=== PATIENT | female | born 1965 | race African-American/Black ===

== ENCOUNTER 2017-08-01 10:33 | Observation (INO) | payer MEDICARE, MEDICAID ==
[2017-08-01 11:35] LABS: #Basophils 0.1 thou/uL (0.0-0.2); #Eosinphils 0.7 thou/uL (0.0-0.7); #Lymphocytes 0.9 thou/uL (1.20-3.40); #Monocytes 0.6 thou/uL (0.11-0.59); #Neutrophils 3.5 thou/uL (1.40-6.50); %Basophils 1.1 % (0.0-1.0); %Eosinophils 12.8 % (0.0-10.0); %Lymphocytes 15.4 % (21.0-51.0); Hematocrit 39.3 % (36.0-47.0); Macrocytosis MODERATE=16-30 cells (100X) (0-5/hpf); Mean Platelet Volume 10.7 fL (7.4-10.4); Red Blood Cell (RBC) Count 3.46 mill/uL (4.20-5.40); White Blood Cell (WBC) Count 5.7 thou/uL (4.8-10.8)
[2017-08-01 11:43] LABS: ALT (SGPT) 26 U/L (8-55); AST (SGOT) 22 U/L (5-34); Alkaline Phosphatase 338 U/L (40-150); Anion Gap 17 mmol/L (10-20); BUN (Urea Nitrogen) 32 mg/dL (7.0-18.7); Bilirubin, Total 0.2 mg/dL (0.2-1.2); CK (CPK) 40 U/L (29-168); Calc. Creatinine Clearance 0 mL/min (70-130); Calcium 8.8 mg/dL (7.8-10.44); Carbon Dioxide 22 mmol/L (22-29); Chloride 103 mmol/L (98-107); Estimated GFR-MDRD 11; Globulin 4.4 g/dL (2.4-3.5); Protein, Total 7.4 g/dL (6.0-8.3)
[2017-08-01 11:44] LABS: Troponin I 0.033 ng/mL (< 0.028)
--- NOTE | 2017-08-01 11:50 | RAD ---
SINGLE VIEW OF THE CHEST: COMPARISON: 06/09/17. HISTORY: Left-sided chest pain. FINDINGS: Single view of the chest shows a normal sized cardiomediastinal silhouette. There is no evidence of consolidation, mass, or pleural effusion. The bones are unremarkable. IMPRESSION: No evidence of acute cardiopulmonary disease. POS: [facility]
[2017-08-01] MEDS ORDERED: Acetaminophen 500 MG TAB ONE (13:16)
[2017-08-01 14:31] LABS: Troponin I 0.036 ng/mL (< 0.028)
[2017-08-01] MEDS ORDERED: Ondansetron ODT 4 MG TAB SL PRN (17:21)
[2017-08-01] MEDS ORDERED: Ondansetron HCl/PF 4 MG/2 ML Vial IVP PRN (17:21)
[2017-08-01] MEDS ORDERED: Acetaminophen 325 MG TAB PO PRN (17:21)
--- NOTE | 2017-08-01 21:35 | CON ---
DATE OF CONSULTATION: 08/01/2017 CONSULTING PHYSICIAN: Anjana Solis M.D. REQUESTING PHYSICIAN: ER physician. REASON FOR CONSULTATION: The need for maintenance hemodialysis. IMPRESSION: 1. End-stage renal disease, hemodialysis dependent, due for dialysis today. 2. Chest pain, query cause, likely in the context of inoperable coronary artery disease, small vess el coronary artery disease. 3. Immunosuppressed due to retroviral infection. PLAN: 1. Hemodialysis with ultrafiltration as tolerated by hemodynamics. 2. Chest pain workup by the primary team. 3. From the renal standpoint, the patient should be good for discharge tomorrow, status post hemodi alysis today. HISTORY OF PRESENT ILLNESS: History is that of a 51-year-old female patient with end-stage renal di sease, hemodialysis-dependent on a Friday, Friday, Friday schedule, who presented here instead of going to dialysis because of chest pain. The patient is being worked up for acute coronary syndrom e. Of note, patient according to previous records does have small vessel inoperable coronary artery disease. The patient is currently on symptomatic treatment with nitrates. As a result of this fin ding, the patient could not get dialysis today, heading through the weekend decision has been taken to admit this patient to complete the chest pain workup and have patient undergo hemodialysis with u ltrafiltration. PAST MEDICAL HISTORY: As listed above. MEDICATIONS: Reviewed as documented on [facility]. ALLERGIES: CODEINE, PENICILLIN, MORPHINE and SULFA. FAMILY HISTORY: Not significantly related to the presenting illness. SOCIAL HISTORY: The patient is a group home resident. No alcohol, no tobacco, no illicit drug us e. REVIEW OF SYSTEMS: As documented in the body of the history, otherwise the other systems were revie wed and were found not to be significantly related to the presenting illness. PHYSICAL EXAMINATION: GENERAL: The patient was found not to be in any obvious distress, undergoing hemodialysis, hemodyna mically stable. VITAL SIGNS: Blood pressure 112/60, respiratory rate of 18, O2 sat of 96%. HEENT: Unremarkable with moist oral mucosa. Neck is supple. No conjunctival injection or icterus. CARDIOVASCULAR: First and second heart sounds were heard. RESPIRATORY: Clear to auscultation. DIGESTIVE: Revealed a benign abdomen with positive bowel sounds. EXTREMITIES: No peripheral edema. SKIN: No new gross rash. LYMPHATICS: No peripheral lymphadenopathy. SUMMARY: A 51-year-old female patient with end-stage renal disease, hemodialysis dependent, who pre sented here with chest pain. Thank you for this consultation. We will follow with you.
[2017-08-01 22:20] VITALS: BMI 27.2
[2017-08-02] MEDS ORDERED: Acetaminophen 325 MG TAB PER TUBE PRN (00:32)
[2017-08-02] MEDS: Guaifenesin DM 100-10/5 ML UDCUP PER TUBE PRN ×2 (00:42→08:51)
[2017-08-02] MEDS ORDERED: Acetaminophen 325 MG/10.15 ML UDCUP PER TUBE PRN (15:53)
[2017-08-02] MEDS ORDERED: Ondansetron ODT 4 MG TAB PER TUBE PRN (16:05)
[2017-08-02] MEDS ORDERED: traMADol HCl 50 MG TAB PO PRN (16:07)
[2017-08-02 17:38] LABS: Troponin I 0.043 ng/mL (< 0.028)
[2017-08-02] MEDS: Sevelamer Carbonate 800 MG TAB PO SCH (17:38)
--- NOTE | 2017-08-02 20:14 | PRG ---
DATE OF SERVICE: 08/02/2017 SUBJECTIVE: The patient was seen and examined with no new complaint noted. PHYSICAL EXAMINATION: VITAL SIGNS: Afebrile with temperature 98.7, pulse 86, respiratory rate 18, O2 sat 99%, blood press ure 102/58. HEENT: Unremarkable with moist oral mucosa. No conjunctival injection or icterus. NECK: Supple. CARDIOVASCULAR: First and second heart sounds were heard. RESPIRATORY: Clear to auscultation. DIGESTIVE: Revealed a benign abdomen with positive bowel sounds. EXTREMITIES: No peripheral edema. SKIN: No new gross rash. LYMPHATICS: No peripheral lymphadenopathy. IMPRESSION: 1. End-stage renal disease, hemodialysis dependent. 2. Immunosuppressed in the context of retroviral infection. 3. Chest pain. PLAN: 1. The patient to be on the current schedule of hemodialysis. 2. From the renal standpoint, the patient is good for discharge.
[2017-08-02] MEDS ORDERED: ABACAVIR SULFATE PER TUBE SCH (21:00)
[2017-08-02] MEDS ORDERED: Atorvastatin Calcium 40 MG TAB PER TUBE SCH (21:00)
[2017-08-02] MEDS ORDERED: RisperDAL Oral Solution 1 MG/ML UDCUP PER TUBE SCH (21:00)
[2017-08-03 07:28] VITALS: BP 112/51; TEMP 98
--- NOTE | 2017-08-03 07:43 | HP ---
DATE OF ADMISSION: 08/01/2017 CHIEF COMPLAINT: Chest pain. HISTORY OF PRESENT ILLNESS: Ms. Veronica is a 51-year-old female with past medical history of end-stage renal disease on hemodialysis and diffuse coronary artery disease, developed chest pain in the left side. The patient was on the way to dialysis today by EMS when she started chest pain and she was brought to the emergency room. Chest pain described as sharp pain in the retrosternal area , no diaphoresis, no shortness of breath, no dizziness. The chest pain is reproducible. In the ER, the patient was evaluated and found to have chest pain , 08/19. Patient received Tylenol and aspirin, admitted to rule out ME in view of her cardiac history. PAST MEDICAL HISTORY: 1. End-stage renal disease, on hemodialysis. 2. Coronary artery disease, diffuse inoperable. 3. Diabetes mellitus type 2. 4. Hypertension. 5. Status post cerebrovascular accident. 6. Peripheral vascular disease. 7. Gastroesophageal reflux disease. 8. Hyperlipidemia. 9. Failure to thrive. 10. infections. 10. Dysphagia, status post PEG. PAST SURGICAL HISTORY: 1. Status post hysterectomy. 2. Status post AKA left and BKA right. 3. PEG tube placement. CURRENT MEDICATIONS: The patient is on trazodone 300 mg daily, tramadol 50 q.i.d. p.r.n., lamivudine 150 daily, Renvela 2.4 grams t.id, Risperdal 3 mg daily, MiraLax daily, Ditropan XL 5 mg daily, Zofran p.r.n., nitroglycerin p.r.n., isosorbide mononitrate 30 mg daily, folic acid 0.8 mg daily, ferrous sulfate 325 mg daily, Sustiva 600 mg daily, Coreg 3.125 mg daily, Lipitor 40 mg daily, aspirin 81 mg daily, Abacavir 600 mg b.i.d. ALLERGIES: PENICILLIN, MORPHINE, SULFONAMIDES, CODEINE. FAMILY HISTORY: Nothing contributory. SOCIAL HISTORY: [facility]. No history of smoking. No history of alcohol. REVIEW OF SYSTEMS: Cardiovascular: No chest pain. No shortness of breath. Respiratory: No fever or cough. Gastrointestinal: No nausea or vomiting. No abdominal pain. Genitourinary: No distension. Central nervous system: Headache, no dizziness. PHYSICAL EXAMINATION: GENERAL: The patient is alert, awake, oriented x3. VITAL SIGNS: Temperature 98, pulse 67, respirations 20, blood pressure 110/60. HEENT: Head is normocephalic, atraumatic. Pupils are equal and reactive. Nasopharynx is pale and dry. Hard and soft palate, no lesions seen. SKIN: Skin turgor decreased. NECK: Supple. No JVD. LUNGS: Bilateral air entry present, no rales, no rhonchi. CARDIAC: S1, S2 regular. ABDOMEN: Soft. No distention, no tenderness. Normal bowel sounds present. Chest wall is tender. NEUROLOGIC: No new deficits. LABORATORY AND X-RAY FINDINGS: CBC shows WBC 5.7, hemoglobin 12, hematocrit 39 , platelets 81. Metabolic panel, sodium 138, potassium 3.8, chloride 103, CO2 22, creatinine 4.9, and glucose 85. CK-MB 1, troponin I 0.023. Chest x-ray, no evidence of acute cardiopulmonary disease. EKG shows normal sinus rhythm, no acute ST-T wave changes seen. ASSESSMENT: 1. Atypical chest pain, rule out myocardial infarction. 2. Diffuse coronary artery disease, inoperable, medical management only. 3. End-stage renal disease, on hemodialysis. 4. Diabetes mellitus. 5. Hypertension. 6. Status post cerebrovascular accident. 7. Peripheral vascular disease. 8. History of infection. PLAN: 1. Vital signs q.4 hours. 2. Activity: As tolerated. 3. Allergies: Multiple, which include PENICILLIN, MORPHINE, SULFONAMIDES, and CODEINE. 4. Diet: Cardiac, renal and ADA. 5. Troponin I q.8 hours x2. 6. Continue prison medication. 7. Hemodialysis daily. The patient will be discharged home soon if everything is negative. MTDD
[2017-08-03] MEDS ORDERED: Ferrous Sulfate 325 MG TAB PO SCH (08:00)
[2017-08-03] MEDS ORDERED: ASCORBIC ACID PER TUBE SCH (09:00)
[2017-08-03] MEDS ORDERED: Folic Acid 1 MG TAB PER TUBE SCH (09:00)
[2017-08-03] MEDS ORDERED: Polyethylene Glycol 3350 17 GM Packet PO SCH (09:00)
[2017-08-03] MEDS ORDERED: traZODone HCl 150 MG TAB PER TUBE SCH (09:00)
[2017-08-03] MEDS ORDERED: Aspirin 81 mg Enteric Coated Tablet PO SCH (09:00)
[2017-08-03] MEDS ORDERED: Carvedilol 3.125 MG TAB PER TUBE SCH (09:00)
[2017-08-03] MEDS ORDERED: Lactinex Tablet PER TUBE SCH (09:00)
[2017-08-03] MEDS: Sevelamer Carbonate 800 MG TAB PO SCH (09:00)
--- NOTE | 2017-08-06 08:47 | DIS ---
DATE OF ADMISSION: 08/01/2017 DATE OF DISCHARGE: 08/03/2017 ADMITTING DIAGNOSES: 1. Chest pain, atypical, rule out myocardial infarction. 2. Diffuse coronary artery disease, inoperable. 3. End-stage renal disease on hemodialysis. 4. Diabetes mellitus. 5. Hypertension. 6. Status post cerebrovascular accident. 7. Peripheral vascular disease. FINAL DIAGNOSES: 1. Chest pain, atypical, no evidence of acute myocardial infarction. 2. Diffuse coronary artery disease, inoperable. 3. End-stage renal disease, on hemodialysis. 4. Diabetes mellitus. 5. Hypertension. 6. History of cerebrovascular accident. 7. Peripheral vascular disease. BRIEF SUMMARY OF HOSPITAL COURSE: Ms. Veronica is a 51-year-old female, who was admitted because of chest pain. The patient has history of coronary artery disease, inoperable, chest pain is sharp in nature, atypical. Her coronary artery disease was diffuse inoperable medical management. The patient was admitted to rule out myocardial infarction. Serial cardiac enzymes were done. Second troponin I was 0.036 and third one was 0.043 which could be due to her end-stage renal disease. The patient did not have any more chest pain. No shortness of breath. In view of improvement, the patient was discharged back to alf. PHYSICAL EXAMINATION: At the time of discharge, GENERAL: She was stable. VITAL SIGNS: Her vital signs were stable. LUNGS: Clear. HEART: Sounds regular. ABDOMEN: Soft and nontender. Bowel sounds present. DISCHARGE MEDICATIONS: Include Sustiva 600 mg daily, Zofran p.r.n., Ditropan XL 5 mg daily, Tylenol p.r.n., vitamin C daily, lamivudine 150 mg daily, Acidophilus Lactobacillus 1 capsule daily, Lipitor 40 mg daily, folic acid 1 daily, ferrous sulfate 1 tablet daily, Risperdal 3 mg daily, abacavir 600 mg b.i.d., tramadol p.r.n., trazodone 300 mg daily, Coreg 3.125 mg daily, sertraline 50 mg daily, Renvela 2.4 grams t.i.d., MiraLax daily, Imdur 30 mg daily, aspirin daily. FOLLOWUP: The patient will be followed up at alf. [facility]US[facility]and[facility]
== END 2017-08-03 11:07 ==
LOC: ERS 10:33 → 2NO 15:14
PROVIDERS: ADMIT Internal Medicine; ATTEND Internal Medicine
DX: R07.89 Other chest pain (principal); I25.10 Atherosclerotic heart disease of native coronary artery without angina pectoris; E11.22 Type 2 diabetes mellitus with diabetic chronic kidney disease; I12.0 Hypertensive chronic kidney disease with stage 5 chronic kidney disease or end stage renal disease; N18.6 End stage renal disease; E11.51 Type 2 diabetes mellitus with diabetic peripheral angiopathy without gangrene; D89.9 Disorder involving the immune mechanism, unspecified; K21.9 Gastro-esophageal reflux disease without esophagitis; B33.3 Retrovirus infections, not elsewhere classified; R62.7 Adult failure to thrive; Z79.82 Long term (current) use of aspirin; Z79.899 Other long term (current) drug therapy; Z99.2 Dependence on renal dialysis; Z88.0 Allergy status to penicillin; Z88.5 Allergy status to narcotic agent; Z88.2 Allergy status to sulfonamides; Z89.512 Acquired absence of left leg below knee; Z89.511 Acquired absence of right leg below knee; Z86.73 Personal history of transient ischemic attack (TIA), and cerebral infarction without residual deficits
CPT/HCPCS: 71010; 80053; 82550; 82553; 82962 ×3; 84484 ×3; 85025; 87340; 93005; 94760; 99285; G0378; 36415; 36416; 90935; G0257; Q0162

== ENCOUNTER 2017-08-15 09:38 | Emergency (ER) | payer MEDICARE, MEDICAID ==
--- NOTE | 2017-08-15 11:17 | CT ---
CT HEAD NONCONTRAST: HISTORY: Left lower extremity numbness. Altered mental status. COMPARISON: 07/07/2015 FINDINGS: There is no evidence of acute intracranial hemorrhage or infarct. Diffuse cortical atrophy and loss prevention representative kian ischemic small vessel disease are similar in appearance to the previous exam. Old left cerebell ar infarct is stable. There is no mass effect or shift of midline structures. The visualized paran pam sinuses remain well aerated. IMPRESSION: Chronic type findings are stable. No acute intracranial abnormalities are demonstrated on noncontra st CT head. POS: [facility]
== END 2017-08-15 12:44 | disposition home or self-care (01) ==
LOC: ERS 09:38
DX: I13.2 Hypertensive heart and chronic kidney disease with heart failure and with stage 5 chronic kidney disease, or end stage renal disease (principal); I50.9 Heart failure, unspecified; N18.6 End stage renal disease; E11.9 Type 2 diabetes mellitus without complications; I25.10 Atherosclerotic heart disease of native coronary artery without angina pectoris; I25.2 Old myocardial infarction; K21.9 Gastro-esophageal reflux disease without esophagitis; B20 Human immunodeficiency virus [HIV] disease; E78.5 Hyperlipidemia, unspecified; J44.9 Chronic obstructive pulmonary disease, unspecified; F32.9 Major depressive disorder, single episode, unspecified; F03.90 Unspecified dementia, unspecified severity, without behavioral disturbance, psychotic disturbance, mood disturbance, and anxiety; Z87.891 Personal history of nicotine dependence; Z86.73 Personal history of transient ischemic attack (TIA), and cerebral infarction without residual deficits; Z79.84 Long term (current) use of oral hypoglycemic drugs; Z99.2 Dependence on renal dialysis
CPT/HCPCS: 70450; 93005

== ENCOUNTER 2017-08-27 03:05 | Inpatient (IN) | payer MEDICARE, MEDICAID ==
[2017-08-27 03:58] LABS: #Basophils 0.1 thou/uL (0.0-0.2); #Eosinphils 0.7 thou/uL (0.0-0.7); #Lymphocytes 1.6 thou/uL (1.20-3.40); #Monocytes 1.2 thou/uL (0.11-0.59); #Neutrophils 8.5 thou/uL (1.40-6.50); %Basophils 0.8 % (0.0-1.0); %Eosinophils 6.1 % (0.0-10.0); %Lymphocytes 13.2 % (21.0-51.0); %Monocytes 9.6 % (0.0-10.0); Hematocrit 33.4 % (36.0-47.0); Red Blood Cell (RBC) Count 3.01 mill/uL (4.20-5.40); White Blood Cell (WBC) Count 12.1 thou/uL (4.8-10.8)
[2017-08-27 04:20] LABS: ALT (SGPT) 36 U/L (8-55); AST (SGOT) 24 U/L (5-34); Alkaline Phosphatase 223 U/L (40-150); Anion Gap 14 mmol/L (10-20); BUN (Urea Nitrogen) 46 mg/dL (7.0-18.7); Bilirubin, Total 0.4 mg/dL (0.2-1.2); CK (CPK) 31 U/L (29-168); Calc. Creatinine Clearance 0 mL/min (70-130); Calcium 8.7 mg/dL (7.8-10.44); Carbon Dioxide 24 mmol/L (22-29); Chloride 100 mmol/L (98-107); Estimated GFR-MDRD 10; Globulin 4.5 g/dL (2.4-3.5); Lipase 103 U/L (8-78); Protein, Total 7.3 g/dL (6.0-8.3)
[2017-08-27 04:30] LABS: Troponin I 0.247 ng/mL (< 0.028)
[2017-08-27] MEDS ORDERED: Enoxaparin Sodium 80 MG/0.8 ML SYRINGE ONE (05:29)
[2017-08-27] MEDS ORDERED: Ondansetron ODT 4 MG TAB SL PRN (06:25)
[2017-08-27] MEDS ORDERED: Acetaminophen 325 MG TAB PO PRN ×2 (06:25→15:42)
[2017-08-27] MEDS ORDERED: Ondansetron HCl/PF 4 MG/2 ML Vial IVP PRN (06:25)
[2017-08-27 07:12] LABS: Troponin I 0.232 ng/mL (< 0.028)
--- NOTE | 2017-08-27 08:40 | RAD ---
PORTABLE AP CHEST: Date: 08-27-17 History: Chest pain. Comparison: 08-01-17 FINDINGS: Cardiac silhouette remains magnified by projection but is at the upper limits of normal in size to m oderately enlarged. The pulmonary vasculature is within normal limits. Linear densities seen at the right lung base also seen on the prior exam which may be related to mild linear scarring. There is s light blunting of the left lateral costophrenic angle which may be related to tiny left pleural effu garrett or pleural thickening. This is also noted on the prior exam. Vascular stent is partially visual ized overlying the right axillary region. IMPRESSION: 1. Overall stable chest with questionable tiny left pleural effusion. POS: [facility]
[2017-08-27 10:44] LABS: Troponin I 0.224 ng/mL (< 0.028)
[2017-08-27] MEDS ORDERED: Vancomycin HCl 1 GM in Premix Bag 1 BAG IVPB SCH (11:15)
[2017-08-27] MEDS ORDERED: Docusate 100 MG CAP PER TUBE PRN (15:45)
[2017-08-27] MEDS ORDERED: Nitroglycerin 0.4 MG TAB (25 Tab Bottle) SL PRN (15:49)
[2017-08-27] MEDS ORDERED: Nitroglycerin 2% Ointment 1 INCH/1 GM Packet TOP PRN (15:49)
[2017-08-27] MEDS ORDERED: Ondansetron ODT 4 MG TAB PER TUBE PRN (15:50)
[2017-08-27] MEDS: traMADol HCl 50 MG TAB PO PRN (17:00)
[2017-08-27] MEDS ORDERED: Dextrose 5% in Water 1,000 ML IV PRN (18:54)
[2017-08-27] MEDS ORDERED: Dextrose 50% Abboject 50 ML SYRINGE IVP PRN (18:54)
[2017-08-27] MEDS ORDERED: Insulin Regular 300 UNITS/3 ML VIAL SC PRN (18:54)
[2017-08-27] MEDS ORDERED: FLU VACC QS2017-18 36 mo. & older 0.5 ML SYRINGE IM ONE (21:00)
[2017-08-27] MEDS: Pregabalin 75 MG CAP PER TUBE SCH (21:49)
[2017-08-27] MEDS: Zolpidem Tartrate 5 MG TAB PER TUBE SCH (21:49)
[2017-08-27] MEDS: Isosorbide Mononitrate 20 MG TAB PO SCH (21:50)
[2017-08-27] MEDS: Clindamycin 150 MG CAP PER TUBE SCH (21:50)
[2017-08-27] MEDS: Atorvastatin Calcium 40 MG TAB PER TUBE SCH (21:50)
[2017-08-27] MEDS: Lactinex Tablet PER TUBE SCH (21:50)
[2017-08-27] MEDS: Oxybutynin ER 5 MG TAB PO SCH (22:03)
[2017-08-27] MEDS: ABACAVIR SULFATE PER TUBE SCH (22:11)
--- NOTE | 2017-08-28 00:21 | CON ---
DATE OF CONSULTATION: 08/27/2017 DATE OF ADMISSION: 08/27/2017 INDICATION FOR CONSULTATION: A 51-year-old female with chest pain. HISTORY OF PRESENT ILLNESS: This unfortunate 51-year-old female who has been seen on multiple occas ions for chest discomfort, has a history of known coronary artery disease which is a severe 3-vessel disease which is inoperable, which is also not amenable to undergoing any type of angioplasty. She has a history of cardiomyopathy. She actually had improvement in her left ventricular systolic fun ction over time. She has end-stage renal disease and on hemodialysis. She has had multiple admissi ons for chest discomfort and medical management is the only option for her unfortunately. We will c marco antonio to adjust the medications. She is on multiple medications at home also, which include nitra leonie as well as beta-blockers. At this time, she continues to have some chest discomfort which she s ays has been ongoing for several days. Her EKG does not show any acute ST-segment changes. Cardiac enzymes are slightly elevated but would still be considered only minimal with someone who has end-s tage renal disease. Her troponin I was 0.247. It is now decreased down to 0.224. PAST MEDICAL HISTORY: Significant for the 3-vessel inoperable disease. She also has a history of H IV. She has a history of hypertension. She has had CVAs in the past. She has had an AKA on the le ft and a BKA on the right. She had a systolic heart failure which is known. She had an ejection fr action in the past, which was 10%-15%, which has had improvement. She has had a PEG tube placed, bu t she has actually been able to eat recently without having aspiration apparently. She also has a h istory of diabetes and hypertension. She has had a history of pneumonias in the past. ALLERGIES: She is allergic to PENICILLIN and SULFA. MEDICATIONS: Her list of medications are rather extensive. At home, she is on nitroglycerin p.r.n. as well as MiraLax, iron, Zantac, Colace, Renvela. She takes lactulose, Lyrica, Prozac, Seroquel, Imdur, Tylenol, Ambien, Cleocin, Zofran, low-dose aspirin, Ditropan, Sustiva. She is on DuoNebs, Co reg, vitamins, Lasix, Lipitor, trazodone, and Epivir. SOCIAL HISTORY: She resides in a shelter. She has a history of tobacco abuse. She has a hist ory of tobacco abuse in the past and illicit drug use. REVIEW OF SYSTEMS: She denied any new complaints except for the chest discomfort, was told in the h istory of present illness. She denied any GI complaints such as nausea, vomiting, diarrhea. No complaints. No chest complaints. No pulmonary complaints such as asthma or emphysema. No recent c olds or cough. She does have an occasional cough but no pneumonias. Neurologically, no seizures. She did have a stroke, but she seems to have had some recovery. She is able to eat and she has had bilateral lower extremity amputations. LABORATORY DATA: Shows a creatinine of 5.52 with a BUN of 46, WBC was 12.1, potassium was 4.6, hemo globin was 11.2. PHYSICAL EXAMINATION: GENERAL: Reveals a middle-aged female. VITAL SIGNS: Blood pressure 125/57, heart rate is 77, respiratory rate 16. She is afebrile. HEENT: Shows the head to be normocephalic, atraumatic. Carotid pulses are present. CHEST: Clear to auscultation. I did not hear any rales, rhonchi, or wheezing. CARDIOVASCULAR: Reveals a regular rate and rhythm. No significant murmurs, heaves, thrills, bruits , or rubs. ABDOMEN: Unremarkable. Positive bowel sounds are present. No tenderness. EXTREMITIES: Showed evidence of a right BKA and left AKA. She has a dialysis shunt in both arms. NEUROLOGIC: She has evidence of previous stroke. She has had some difficulty in speech, but she is able to communicate. Severe three-vessel coronary artery disease which is inoperable and is not amenable to undergo angio plasty or stent placement. She has medical management only. We will continue to adjust her medicat ions as needed. She complains of chest pain, 10/10, but with no EKG changes. Her EKG does show griffin dence of possible old inferior myocardial infarction. She did have an echocardiogram in 10/2016, wh ich showed an ejection fraction of 40%-45% with aortic valve sclerosis and mild mitral and tricuspid valve regurgitation. MPRESSION: 1. Severe three-vessel coronary artery disease, again not amenable to undergoing angioplasty or fritz nt placement. We will continue to manage medications. 2. History of hypertension. This is under reasonable control at this time. 3. End-stage renal disease on hemodialysis. She will continue with dialysis. 4. History of cerebrovascular accident. This will be managed by the primary service. 5. Anemia. This is also stable at this time. I will be more than happy to continue to follow the patient with you; however, there is very little that we have to offer from a cardiac standpoint othe r than medical management. She appears to be almost on multiple medications at this time. Present care of the patient will be done by Dr. Contreras when he resumes care of the patient tomorrow.
--- NOTE | 2017-08-28 05:57 | CON ---
DATE OF CONSULTATION: 08/27/2017 CONSULTING PHYSICIAN: Anjana Solis M.D. REQUESTING PHYSICIAN: Dr. Crandall. REASON FOR CONSULTATION: Need for maintenance hemodialysis. IMPRESSION: 1. End-stage renal disease, hemodialysis dependent Friday, Friday, Friday, due for dialysis toda y. 2. Chest pain likely in the context of inoperable small vessel coronary artery disease. PLAN: We will dialyze this patient in accordance with her schedule. Further management to be depyassine dent on the clinical course. HISTORY: History is that of a 51-year-old female patient with end-stage renal disease, hemodialysis dependent on a Friday, Friday, Friday schedule, who presented here with chest pain. The patient does have a history of presenting to the hospital with recurrent chest pain and this is believed to be inoperable due to the small cardiac vessels. The patient presented this time again with the sally e complaint. PAST MEDICAL HISTORY: Significant for end-stage renal disease, hemodialysis dependent, hypertension with a viral infection. MEDICATIONS: Reviewed and as documented on [employer]. REVIEW OF SYSTEMS: As documented in the body of the history. The other systems were reviewed and w ere found not to be significantly related to the presenting illness. PHYSICAL EXAMINATION: GENERAL: The patient was found not to be in any obvious distress, on dialysis. VITAL SIGNS: Afebrile, hemodynamically stable. HEENT: Unremarkable with moist oral mucosa. NECK: Supple. No conjunctival injection or icterus. CARDIOVASCULAR SYSTEM: First and second heart sounds were heard. RESPIRATORY SYSTEM: Clear to auscultation. DIGESTIVE SYSTEM: Revealed a benign abdomen. EXTREMITIES: No peripheral edema. SKIN: No new gross rash. LYMPHATICS: No peripheral lymphadenopathy. SUMMARY: A 51-year-old female patient with end-stage renal disease, hemodialysis dependent, who pre sented here with intermittent chest pain. Thank you for this consult. I will follow with you.
--- NOTE | 2017-08-28 06:31 | HP ---
DATE OF ADMISSION: 08/27/2017 CHIEF COMPLAINT: Chest pain and abscess in the right axilla. HISTORY OF PRESENT ILLNESS: Ms. Veronica is a 51-year-old female with past medical history of end-stage renal disease, diabetes mellitus, diffuse coronary artery disease who was brought in because of the chest pain. The patient states she had pain in the retrosternal area which is pressure-like started in the morning, but it got resolved after the EMS came. The patient received nitro x2. She did not have any shortness of breath, no fever, complaints of swelling and pain in the right underarm for a few days and she states it is draining pus now. The patient was brought to the emergency room where she was evaluated and found to have elevated troponin I and possible abscess, which is draining in the right axilla. The patient received vancomycin 1 gram, aspirin and Lovenox. The patient is admitted for further evaluation and management. Currently, the patient does not have any chest pain. PAST MEDICAL HISTORY: 1. Diabetes mellitus. 2. Diffuse coronary artery disease, nonoperable. 3. Peripheral vascular disease, status post bilateral BKA. 4. History of cerebrovascular accident. 5. Hypertension. 6. End-stage renal disease, on hemodialysis. 7. History of HIV. PAST SURGICAL HISTORY: 1. Status post BKA bilaterally. 2. Status post PEG tube placement. 3. Status post hysterectomy. CURRENT MEDICATIONS: The patient is on multiple medications, which include abacavir 600 mg b.i.d., vitamin C daily, aspirin daily, Lipitor 40 mg daily, Coreg 3.125 mg daily, clindamycin 300 mg t.i.d., Sustiva 600 mg daily, ferrous sulfate daily, Prozac 20 mg daily, DuoNeb q.i.d., Lasix 40 b.i.d., folic acid daily, Imdur 20 b.i.d., lactulose daily, Epivir 150 mg daily, nitroglycerin p.r.n., MiraLax daily, Lyrica 75 mg b.i.d., Seroquel 200 mg daily, Zantac 300 mg daily, Zoloft 50 mg daily, Renvela 2.4 grams daily, tramadol 50 q.6 hourly p.r.n., trazodone 150 daily, Ambien p.r.n. ALLERGIES: PENICILLIN, SULFA, CODEINE and MORPHINE. FAMILY HISTORY: Significant for coronary artery disease in multiple family members. SOCIAL HISTORY: Patient is a resident of [facility]. No history of smoking. No history of alcohol intake. REVIEW OF SYMPTOMS: Cardiovascular: Has chest pain. No shortness of breath. Respiratory: No fever or cough. Gastrointestinal: No nausea or vomiting. No abdominal pain. Genitourinary: No dysuria or hematuria. Central nervous system: No headache, no dizziness. PHYSICAL EXAMINATION: GENERAL: The patient is alert, awake, oriented x2. VITAL SIGNS: Temperature 98, pulse 78, respirations 20, blood pressure 100/60. HEENT: Head is normocephalic, atraumatic. Pupils are equal and reactive to light. Nasopharynx is pale and dry. Hard and soft palate, no lesions. SKIN: Skin turgor decreased. NECK: Supple. No JVD. LUNGS: Bilateral air entry, no rales, no rhonchi. CARDIAC: S1, S2 regular. ABDOMEN: Soft, no distention, no tenderness. Normal bowel sounds. RECTAL: Deferred. CENTRAL NERVOUS SYSTEM: No focal deficit. MUSCULOSKELETAL: In the right axilla, there is indurated swelling present with pus drainage. It is tender. LABORATORY DATA AND X-RAY FINDINGS: CBC shows WBC 12, hemoglobin 11, hematocrit 33, platelets 222. Metabolic panel: Sodium 133, potassium 4.6, chloride 100, CO2 of 24, BUN 46, creatinine 5.52, glucose 110. CK-MB 1.6, troponin I 0.247. EKG shows normal sinus rhythm, no acute ST-T wave changes seen. Chest x-ray stable. ASSESSMENT: 1. Chest pain, rule out myocardial infarction. 2. Abscess in right axilla. 3. End-stage renal disease, on hemodialysis. 4. Diffuse coronary artery disease. 5. Diabetes mellitus. 6. Hypertension. 7. Status post cerebrovascular accident. 8. Status post BKA bilaterally. PLAN: 1. Vital signs q.4 hours. 2. Activity: As tolerated. 3. Allergies: PENICILLIN, MORPHINE, SULFA, and CODEINE. 4. Hep-Lock. 5. Vancomycin 1 gram daily during hemodialysis. 6. Continue group home medications. 7. Accu-Cheks a.c. and bedtime. 8. Sliding scale mild with regular insulin. 9. Surgery consult. 10. Infectious Disease consult. [facility]
[2017-08-28] MEDS: Polyethylene Glycol 3350 17 GM Packet PER TUBE SCH (08:55)
[2017-08-28] MEDS: Clindamycin 150 MG CAP PER TUBE SCH ×3 (08:56→22:41)
[2017-08-28] MEDS: traZODone HCl 150 MG TAB PO SCH (08:56)
[2017-08-28] MEDS: Pregabalin 75 MG CAP PER TUBE SCH ×2 (08:56→22:42)
[2017-08-28] MEDS: Aspirin 81 mg Enteric Coated Tablet PER TUBE SCH (08:56)
[2017-08-28] MEDS: Isosorbide Mononitrate 20 MG TAB PO SCH ×2 (08:56→22:41)
[2017-08-28] MEDS: Famotidine 20 MG TAB PER TUBE SCH (08:57)
[2017-08-28] MEDS: traMADol HCl 50 MG TAB PO PRN ×2 (08:57→22:43)
[2017-08-28] MEDS: Furosemide 40 MG TAB PER TUBE SCH ×2 (08:58→18:23)
[2017-08-28] MEDS: Ferrous Sulfate 325 MG TAB PO SCH (08:58)
[2017-08-28] MEDS: Folic Acid 1 MG TAB PER TUBE SCH (08:58)
[2017-08-28] MEDS: FLUoxetine HCl 20 MG CAP PER TUBE SCH (08:58)
[2017-08-28] MEDS: Lactinex Tablet PER TUBE SCH ×2 (08:58→22:41)
[2017-08-28] MEDS: Carvedilol 3.125 MG TAB PER TUBE SCH (08:58)
[2017-08-28] MEDS: Sevelamer Carbonate 800 MG TAB PO SCH (08:58)
[2017-08-28] MEDS ORDERED: ASCORBIC ACID 100 MG PER TUBE SCH (09:00)
[2017-08-28] MEDS: ABACAVIR SULFATE PER TUBE SCH ×2 (12:44→22:43)
[2017-08-28] MEDS: Atorvastatin Calcium 40 MG TAB PER TUBE SCH (22:41)
[2017-08-28] MEDS: Oxybutynin ER 5 MG TAB PO SCH (22:41)
[2017-08-28] MEDS: Zolpidem Tartrate 5 MG TAB PER TUBE SCH (22:42)
[2017-08-29 05:28] LABS: Anion Gap 13 mmol/L (10-20); BUN (Urea Nitrogen) 42 mg/dL (7.0-18.7); Calc. Creatinine Clearance 18 mL/min (70-130); Calcium 8.5 mg/dL (7.8-10.44); Carbon Dioxide 29 mmol/L (22-29); Chloride 99 mmol/L (98-107); Estimated GFR-MDRD 12
--- NOTE | 2017-08-29 05:55 | CON ---
DATE OF CONSULT: 08/28/2017 HISTORY OF PRESENT ILLNESS: A 51-year-old morbidly obese black female, HIV positive, end-stage amanda l disease on maintenance dialysis with a right upper arm dialysis graft, has had hidradenitis suppur ativa resected from the left axilla was admitted on this occasion to the Hospitalist Service, [facility] ed by Dr. Yee, seen by Dr. Jack Glynn, and Dr. Yeung, her scrap sorter. The patient is s tatus post bilateral amputations, has a PEG tube in place, has had a hysterectomy. She is in [facility] home. She has pus drainage from right axilla, has a right axillary hidradenitis. I have planned to drain that tomorrow under anesthesia with wound left open for healing be secondary intention. Ho pefully, underlying dialysis graft will not be involved. PAST MEDICAL HISTORY: Diabetes mellitus, nonoperable coronary disease, PVD status post bilateral BK A, history of stroke, hypertension, end-stage renal disease on dialysis, HIV positive. MEDICATIONS: See list Abacavir, vitamin C, Lipitor, Coreg, clindamycin, Sustiva, Prozac, DuoNebs, L asix, Imdur, Epivir, nitroglycerin, MiraLax, Seroquel, Zoloft, Renvela, tramadol. ALLERGIES: PENICILLIN, SULFA, CODEINE, MORPHINE. PHYSICAL EXAMINATION: GENERAL: Patient this evening has food all over her chest. VITAL SIGNS: 5 foot 6 inches, 31 pounds, 27 BMI, 97 degrees, blood pressure 114/59. LABORATORY DATA: White count 12, hemoglobin 11.2. Basic metabolic profile changes consistent with end-stage renal disease. ASSESSMENT AND PLAN: Right axilla multiloculated findings consistent with abscesses associated with hidradenitis suppurativa. PLAN: 1. Incision and drainage, debridement, wound left open for healing by secondary intention. She und erstands the risks, benefits, and consents. 2. End-stage renal disease, functioning right upper arm dialysis prosthetic graft. 3. Human immunodeficiency virus positive. 4. Diabetes. 5. Hypertension. 6. History of stroke. 7. Bilateral BKA status.
[2017-08-29] MEDS: Clindamycin 150 MG CAP PER TUBE SCH ×3 (09:56→21:29)
[2017-08-29] MEDS: Furosemide 40 MG TAB PER TUBE SCH ×2 (12:02→15:05)
[2017-08-29] MEDS ORDERED: Fentanyl 100 MCG/2 ML VIAL ONE (12:55)
[2017-08-29] MEDS ORDERED: Clindamycin/D5W 600 mg/50 ml Premix Bag ONE (13:02)
[2017-08-29] MEDS ORDERED: Propofol 200 MG/20 ML VIAL ONE (13:17)
[2017-08-29] MEDS ORDERED: Etomidate 20 MG/10 ML VIAL ONE (13:17)
[2017-08-29] MEDS ORDERED: Lidocaine 2% w/Epinephrine 1:200K 20 ML VIAL ONE (13:29)
[2017-08-29] MEDS ORDERED: Bupivacaine PF 0.5% 30 ML VIAL ONE (13:29)
[2017-08-29] MEDS ORDERED: Acetaminophen 500 MG TAB PO PRN (13:34)
[2017-08-29] MEDS ORDERED: Promethazine HCl 25 MG/ML VIAL SLOW IVP PRN (14:08)
[2017-08-29] MEDS ORDERED: Ondansetron HCl/PF 4 MG/2 ML Vial IVP PRN (14:08)
[2017-08-29] MEDS ORDERED: Promethazine HCl 25 MG/ML VIAL IM PRN (14:08)
[2017-08-29] MEDS: Carvedilol 3.125 MG TAB PER TUBE SCH (14:32)
[2017-08-29] MEDS: Ferrous Sulfate 325 MG TAB PO SCH (14:32)
[2017-08-29] MEDS: ABACAVIR SULFATE PER TUBE SCH ×2 (14:32→21:30)
[2017-08-29] MEDS: Aspirin 81 mg Enteric Coated Tablet PER TUBE SCH (14:32)
[2017-08-29] MEDS: Folic Acid 1 MG TAB PER TUBE SCH (14:32)
[2017-08-29] MEDS: Famotidine 20 MG TAB PER TUBE SCH (14:32)
[2017-08-29] MEDS: FLUoxetine HCl 20 MG CAP PER TUBE SCH (14:33)
[2017-08-29] MEDS: Isosorbide Mononitrate 20 MG TAB PO SCH ×2 (14:33→21:29)
[2017-08-29] MEDS: Pregabalin 75 MG CAP PER TUBE SCH ×2 (14:33→21:28)
[2017-08-29] MEDS: Lactinex Tablet PER TUBE SCH ×2 (14:33→21:30)
[2017-08-29] MEDS: Polyethylene Glycol 3350 17 GM Packet PER TUBE SCH (14:33)
[2017-08-29] MEDS: traZODone HCl 150 MG TAB PO SCH (14:34)
[2017-08-29] MEDS: Sevelamer Carbonate 800 MG TAB PO SCH (14:34)
[2017-08-29] MEDS: traMADol HCl 50 MG TAB PO PRN (15:05)
--- NOTE | 2017-08-29 17:44 | PRG ---
DATE OF SERVICE: 08/29/2017 SUBJECTIVE: The patient was seen and examined at dialysis, noted with following vital signs. PHYSICAL EXAMINATION: VITAL SIGNS: Afebrile, temperature 98, pulse 75, respiratory rate 18, O2 sat 97% with blood pressur e 114/47. HEENT: Unremarkable with moist oral mucosa. Neck is supple. No conjunctival injection or icterus. CARDIOVASCULAR SYSTEM: First and second heart sounds are heard. RESPIRATORY SYSTEM: Clear to auscultation. DIGESTIVE SYSTEM: Revealed a benign abdomen. EXTREMITIES: No peripheral edema. SKIN EXAMINATION: No new gross rash. LYMPHATICS: No peripheral lymphadenopathy. IMPRESSION: 1. End-stage renal disease, hemodialysis dependent. 2. Chest pain. 3. Axillary carbuncle. PLAN: 1. The patient undergoing dialysis per her schedule. 2. Further management including the disposition planning per the primary team.
[2017-08-29] MEDS: Oxybutynin ER 5 MG TAB PO SCH (21:28)
[2017-08-29] MEDS: Zolpidem Tartrate 5 MG TAB PER TUBE SCH (21:29)
[2017-08-29] MEDS: Atorvastatin Calcium 40 MG TAB PER TUBE SCH (21:29)
--- NOTE | 2017-08-29 23:37 | OP ---
DATE OF OPERATION: 08/29/2017 PREOPERATIVE DIAGNOSES: End-stage renal disease; right axillary abscess; deep dialysis graft right upper arm; axillary vein graft anastomosis, right; HIV positive, bilateral amputee, DNR status. POSTOPERATIVE DIAGNOSES: End-stage renal disease; right axillary abscess; deep dialysis graft righ t upper arm; axillary vein graft anastomosis, right; HIV positive, bilateral amputee DNR status, wit h deep axillary abscess close to, but not exposing dialysis graft (PTFE). PROCEDURE: Incision and drainage of deep right axillary abscess with debridement of devitalized sub cutaneous tissue, resectional sharp 10 blade excisional, wound care team arrived and placed a wound VAC. ANESTHESIA: TIVA anesthesia, local 0.5% Marcaine 30 mL mixed with 2% Xylocaine, 20 mL PROCEDURE IN DETAIL: Patient was taken to the operating room where under intravenous sedation, righ t axilla was clipped of hair, prepared with ChloraPrep, draped in routine fashion. Patient had had previous excision of hidradenitis suppurativa and the scar was evident healed. Posterior axilla rev ealed punctate opening with purulent discharge. A skin incision was made excising an ellipse of ski n between the old scar and posteriorly, excising the devitalize underlying subcutaneous tissue and s kin and submitted to pathology purulent material appreciated and it was deep. It was dissecte d free down towards the dialysis graft vein anastomosis. PTFE graft vein was not exposed, but there was a thick patch of inflammatory granulation tissue overlying this. Wound irrigated. Hemostasis gained with the cautery. Wound care time arrived and placed a wound VAC after infiltrating local an esthetic for postoperative pain control. Patient tolerated the procedure well.
[2017-08-30] MEDS: traMADol HCl 50 MG TAB PO PRN ×2 (08:01→15:29)
[2017-08-30] MEDS: Lactinex Tablet PER TUBE SCH ×2 (08:02→21:53)
[2017-08-30] MEDS: Furosemide 40 MG TAB PER TUBE SCH ×2 (08:03→13:48)
[2017-08-30] MEDS: Clindamycin 150 MG CAP PER TUBE SCH ×3 (08:03→21:52)
[2017-08-30] MEDS: Carvedilol 3.125 MG TAB PER TUBE SCH (08:03)
[2017-08-30] MEDS: Sevelamer Carbonate 800 MG TAB PO SCH (08:03)
[2017-08-30] MEDS: Aspirin 81 mg Enteric Coated Tablet PER TUBE SCH (08:03)
[2017-08-30] MEDS: traZODone HCl 150 MG TAB PO SCH (08:03)
[2017-08-30] MEDS: Ferrous Sulfate 325 MG TAB PO SCH (08:03)
[2017-08-30] MEDS: FLUoxetine HCl 20 MG CAP PER TUBE SCH (08:04)
[2017-08-30] MEDS: Isosorbide Mononitrate 20 MG TAB PO SCH ×2 (08:04→21:52)
[2017-08-30] MEDS: Famotidine 20 MG TAB PER TUBE SCH (08:04)
[2017-08-30] MEDS: Folic Acid 1 MG TAB PER TUBE SCH (08:04)
[2017-08-30] MEDS: Pregabalin 75 MG CAP PER TUBE SCH ×2 (08:05→21:53)
[2017-08-30] MEDS: Polyethylene Glycol 3350 17 GM Packet PER TUBE SCH (08:06)
[2017-08-30] MEDS: ABACAVIR SULFATE PER TUBE SCH ×2 (08:09→21:51)
[2017-08-30] MEDS: [UNRECOGNIZED DRUG - OTHER] IVPB SCH (13:47)
[2017-08-30] MEDS: CEFTRIAXONE ROCEPHIN IVPB SCH (13:47)
[2017-08-30] MEDS: ADMIXTURE FEE CHEMO IVPB SCH (13:47)
--- NOTE | 2017-08-30 21:50 | CON ---
DATE OF CONSULTATION: 08/30/2017 REASON FOR CONSULTATION: Recent right axillary inflammatory process. HISTORY OF PRESENT ILLNESS: This is a 51-year-old patient who has a longstanding history of HIV infection, type 2 diabetes mellitus and various complications including CVAs, peripheral vascular disease with bilateral amputations and eventual end-stage renal disease on hemodialysis through an AV graft in the right arm. Previously, the patient had complications related to exposure and infection of the graft in the left upper extremity. The patient eventually underwent placement of right-sided PTFE graft connecting brachial artery to the axillary vein. This was done at the beginning of 02/2016. The infection of the left-sided arm graft was a polymicrobial process and included Providencia species, Proteus mirabilis, coagulase negative staph. This time, she is admitted by Dr. Yee with a pressure-like chest pain and inflammatory process in the right axillary region and medial aspect of the right arm, which had been present for few days before admission with purulent drainage. Patient underwent surgical debridement on 08/[address] Gil. Operative findings included devitalized tissue in the subcutaneous area, purulent material which penetrated deeply. The PTFE graft did not appear exposed, but there was a thick patch of inflammatory granulation tissue overlying this area. Patient has a negative pressure dressing on top of the wound at this time. Awake and alert, does not appear in distress. She has marked visual impairment, but is able to count fingers. No headaches, no dyspnea or chest pain anymore. No abdominal pain or diarrhea. No genitourinary symptoms. PAST MEDICAL HISTORY: Type 2 diabetes and various complications, bilateral BKAs maximaly the left side [id number] amputation, coronary artery disease nonoperable with stable angina, prior CVA, hypertension, end-stage renal disease on hemodialysis, prior infection of left arm graft which had to be removed, placement of a right PTFE AV graft right upper extremity, HIV infection with controlled viremia and suppressed viral load, swallowing dysfunction with episodes of aspiration in the past with pneumonia. PAST SURGICAL HISTORY: Includes BKAs and then left AKA, multiple dialysis access placements, infection left graft placement and gastrostomy tube placement. MEDICATIONS: Abacavir, aspirin, Lipitor, Coreg, Sustiva, Prozac, DuoNeb, folic acid, lactulose, Epivir, MiraLax, Seroquel, Zantac, Zoloft, Renvela and tramadol. SOCIAL HISTORY: [facility] resident. Former smoker. FAMILY HISTORY: Diabetes and coronary artery disease. Currently, the patient is on ceftriaxone and vancomycin. PHYSICAL EXAMINATION: VITAL SIGNS: T-max 98.8, blood pressure 120/52, pulse 80, respirations 18 and O2 saturation 98%. GENERAL: Appears in no distress, oriented. SKIN: Shows the area of right axillary wound with fresh granulation base after surgical drainage and before placement of a negative pressure dressing. Peripheral IV access. No Calderon catheter. HEENT: Ocular movement is a bit disconjugate. Pupils are 2 mm and reactive. Oral cavity with numerous missing teeth. NECK: Supple. No jugular venous distention. LUNGS: Symmetric clear breath sounds, somewhat diminished breath sounds in the left side. HEART: S1 and S2 with regular rate. [place] and pulses are not palpable. No S3. ABDOMEN: Soft, not distended or tender. No bladder distention. No ascites or organomegaly. The left AKA and right BKA stumps are intact. NEUROLOGIC: She is awake, follows commands and recognizes me. LABORATORY DATA: White cell count 12.1, hemoglobin 11 and platelets 222 with sodium of 136 and creatinine 4.69. Transaminases normal, alkaline phosphatase 223, albumin 2.8 and globulin 4.5. No blood cultures submitted and cultures from the axillary abscess with P. mirabilis with exact same susceptibility as the one from 2016, non-hemolytic Streptococcus. ASSESSMENT: 1. End-stage renal disease associated with diabetes type 2, multiple prior complications following placement of AV grafts, now with an AV graft in the arm , right axillary region. 2. Abscess/inflammatory process with polymicrobial juan, one of the organisms is the same Proteus that had been isolated from blood in the wound in the left from the time that the patient was having complications from the left-sided graft. 3. Human immunodeficiency virus infection, well controlled. DISCUSSION: The main concern here is that the previously noted infection of left graft with associated bacteremia has seeded the right-sided graft. We will submit two sets of blood cultures. If they return positive for the same organism then that would be the likely scenario. Continue Rocephin and discontinue vancomycin. Even if the blood cultures turn negative, this could be related to the presence of antimicrobial therapy prior to the sampling. In that case, we will have to still consider the possibility of recrudescence of the infection and then obtain repeat blood cultures done. The similarity of the organism from the 2016 isolate increases the concern with a graft infection. JUDIED
[2017-08-30] MEDS: Atorvastatin Calcium 40 MG TAB PER TUBE SCH (21:52)
[2017-08-30] MEDS: Oxybutynin ER 5 MG TAB PO SCH (21:53)
[2017-08-30] MEDS: Zolpidem Tartrate 5 MG TAB PER TUBE SCH (21:54)
[2017-08-31 05:25] LABS: #Eosinphils 0.6 thou/uL (0.0-0.7); #Lymphocytes 1.6 thou/uL (1.20-3.40); #Monocytes 0.9 thou/uL (0.11-0.59); %Basophils 0.4 % (0.0-1.0); %Eosinophils 6.9 % (0.0-10.0); %Lymphocytes 17.3 % (21.0-51.0); %Monocytes 9.4 % (0.0-10.0); Hematocrit 31.8 % (36.0-47.0); Mean Platelet Volume 8.1 fL (7.4-10.4); Red Blood Cell (RBC) Count 2.84 mill/uL (4.20-5.40)
[2017-08-31 05:43] LABS: ALT (SGPT) 23 U/L (8-55); AST (SGOT) 19 U/L (5-34); Alkaline Phosphatase 204 U/L (40-150); Anion Gap 13 mmol/L (10-20); BUN (Urea Nitrogen) 43 mg/dL (7.0-18.7); Bilirubin, Total 0.3 mg/dL (0.2-1.2); Calc. Creatinine Clearance 17 mL/min (70-130); Calcium 8.6 mg/dL (7.8-10.44); Carbon Dioxide 28 mmol/L (22-29); Chloride 98 mmol/L (98-107); Estimated GFR-MDRD 12; Protein, Total 6.6 g/dL (6.0-8.3)
[2017-08-31] MEDS: Isosorbide Mononitrate 20 MG TAB PO SCH ×2 (10:08→21:54)
[2017-08-31] MEDS: ABACAVIR SULFATE PER TUBE SCH ×2 (10:08→21:53)
[2017-08-31] MEDS: Aspirin 81 mg Enteric Coated Tablet PER TUBE SCH (10:08)
[2017-08-31] MEDS: Furosemide 40 MG TAB PER TUBE SCH ×2 (10:09→13:06)
[2017-08-31] MEDS: Clindamycin 150 MG CAP PER TUBE SCH (10:09)
[2017-08-31] MEDS: Pregabalin 75 MG CAP PER TUBE SCH ×2 (10:09→21:53)
[2017-08-31] MEDS: Sevelamer Carbonate 800 MG TAB PO SCH (10:09)
[2017-08-31] MEDS: Folic Acid 1 MG TAB PER TUBE SCH (10:10)
[2017-08-31] MEDS: Polyethylene Glycol 3350 17 GM Packet PER TUBE SCH (10:10)
[2017-08-31] MEDS: traZODone HCl 150 MG TAB PO SCH (10:10)
[2017-08-31] MEDS: Ferrous Sulfate 325 MG TAB PO SCH (10:11)
[2017-08-31] MEDS: Lactinex Tablet PER TUBE SCH ×2 (10:11→21:54)
[2017-08-31] MEDS: Carvedilol 3.125 MG TAB PER TUBE SCH (10:11)
[2017-08-31] MEDS: Famotidine 20 MG TAB PER TUBE SCH (10:14)
[2017-08-31] MEDS: FLUoxetine HCl 20 MG CAP PER TUBE SCH (10:14)
[2017-08-31] MEDS: CEFTRIAXONE ROCEPHIN IVPB SCH (12:27)
[2017-08-31] MEDS: ADMIXTURE FEE CHEMO IVPB SCH (12:27)
[2017-08-31] MEDS: [UNRECOGNIZED DRUG - OTHER] IVPB SCH (12:27)
[2017-08-31] MEDS: Atorvastatin Calcium 40 MG TAB PER TUBE SCH (21:53)
[2017-08-31] MEDS: Zolpidem Tartrate 5 MG TAB PER TUBE SCH (21:54)
[2017-08-31] MEDS: Oxybutynin ER 5 MG TAB PO SCH (21:54)
[2017-08-31] MEDS: traMADol HCl 50 MG TAB PO PRN (21:55)
[2017-08-31] MEDS: Sodium Chloride 0.9% 10 ML ONE (21:55)
--- NOTE | 2017-09-01 09:06 | PRG ---
DATE OF SERVICE: 09/01/2017 The patient was seen and examined today, claimed not to be feeling well. PHYSICAL EXAMINATION: VITAL SIGNS: Afebrile with temperature 98.1, pulse 72, respiratory rate 20, O2 sat 96%, blood press ure 117/55. HEENT: Unremarkable with moist oral mucosa. Neck is supple. No conjunctival injection or icterus. CARDIOVASCULAR: First and second heart sounds were heard. RESPIRATORY: Clear to auscultation. DIGESTIVE: Revealed a benign abdomen with positive bowel sounds. EXTREMITIES: No peripheral edema. SKIN: No new gross rash. LYMPHATICS: No peripheral lymphadenopathy. IMPRESSION: 1. End-stage renal disease on hemodialysis, on dialysis machine at this point as per schedule. 2. Right axillary abscess, status post incision and drainage. 3. Human immunodeficiency virus infection. PLAN: 1. We will continue current dialysis regimen. 2. Antibiotic treatment per Infectious Disease Service. 3. Further management will be dependent on the clinical course.
[2017-09-01] MEDS: traMADol HCl 50 MG TAB PO PRN ×2 (14:23→21:28)
[2017-09-01] MEDS: Aspirin 81 mg Enteric Coated Tablet PER TUBE SCH (14:31)
[2017-09-01] MEDS: Isosorbide Mononitrate 20 MG TAB PO SCH ×2 (14:32→21:29)
[2017-09-01] MEDS: Lactinex Tablet PER TUBE SCH ×2 (14:32→21:29)
[2017-09-01] MEDS: Sevelamer Carbonate 800 MG TAB PO SCH (14:32)
[2017-09-01] MEDS: traZODone HCl 150 MG TAB PO SCH (14:32)
[2017-09-01] MEDS: Folic Acid 1 MG TAB PER TUBE SCH (14:33)
[2017-09-01] MEDS: Ferrous Sulfate 325 MG TAB PO SCH (14:33)
[2017-09-01] MEDS: FLUoxetine HCl 20 MG CAP PER TUBE SCH (14:34)
[2017-09-01] MEDS: Famotidine 20 MG TAB PER TUBE SCH (14:34)
[2017-09-01] MEDS: Carvedilol 3.125 MG TAB PER TUBE SCH (14:34)
[2017-09-01] MEDS: Pregabalin 75 MG CAP PER TUBE SCH ×2 (14:35→21:28)
[2017-09-01] MEDS: Polyethylene Glycol 3350 17 GM Packet PER TUBE SCH (14:36)
[2017-09-01] MEDS: ABACAVIR SULFATE PER TUBE SCH ×2 (14:38→21:33)
[2017-09-01] MEDS: Furosemide 40 MG TAB PER TUBE SCH ×2 (14:38)
[2017-09-01] MEDS: CEFTRIAXONE ROCEPHIN IVPB SCH (14:39)
[2017-09-01] MEDS: [UNRECOGNIZED DRUG - OTHER] IVPB SCH (14:39)
[2017-09-01] MEDS: ADMIXTURE FEE CHEMO IVPB SCH (14:39)
[2017-09-01] MEDS: Sodium Chloride 0.9% 10 ML ONE (14:54)
--- NOTE | 2017-09-01 16:13 | EKG ---
Test Reason : Blood Pressure : / mmHG Vent. Rate : 080 BPM Atrial Rate : 080 BPM P-R Int : 168 ms QRS Dur : 104 ms QT Int : 432 ms P-R-T Axes : 067 052 263 degrees QTc Int : 498 ms Normal sinus rhythm Non-specific intra-ventricular conduction delay Possible Lateral infarct (cited on or before 30-MAY-2017) Possible Inferior infarct (cited on or before 30-MAY-2017) Abnormal ECG Confirmed by YADI HERNANDEZ ([id number]) on 09/01/2017 4:13:14 PM Referred By: CHON Confirmed By:YADI HERNANDEZ
[2017-09-01] MEDS: Oxybutynin ER 5 MG TAB PO SCH (21:28)
[2017-09-01] MEDS: Zolpidem Tartrate 5 MG TAB PER TUBE SCH (21:28)
[2017-09-01] MEDS: Atorvastatin Calcium 40 MG TAB PER TUBE SCH (21:29)
[2017-09-02] MEDS: Sevelamer Carbonate 800 MG TAB PO SCH (09:00)
[2017-09-02] MEDS: Pregabalin 75 MG CAP PER TUBE SCH ×2 (09:00→21:07)
[2017-09-02] MEDS: traZODone HCl 150 MG TAB PO SCH (09:02)
[2017-09-02] MEDS: Ferrous Sulfate 325 MG TAB PO SCH (09:02)
[2017-09-02] MEDS: Folic Acid 1 MG TAB PER TUBE SCH (09:02)
[2017-09-02] MEDS: FLUoxetine HCl 20 MG CAP PER TUBE SCH (09:02)
[2017-09-02] MEDS: Isosorbide Mononitrate 20 MG TAB PO SCH ×2 (09:02→21:07)
[2017-09-02] MEDS: Carvedilol 3.125 MG TAB PER TUBE SCH (09:02)
[2017-09-02] MEDS: Lactinex Tablet PER TUBE SCH ×2 (09:02→21:06)
[2017-09-02] MEDS: Aspirin 81 mg Enteric Coated Tablet PER TUBE SCH (09:02)
[2017-09-02] MEDS: Famotidine 20 MG TAB PER TUBE SCH (09:02)
[2017-09-02] MEDS: Furosemide 40 MG TAB PER TUBE SCH ×2 (09:02→15:23)
[2017-09-02] MEDS: traMADol HCl 50 MG TAB PO PRN (09:03)
[2017-09-02] MEDS: Polyethylene Glycol 3350 17 GM Packet PER TUBE SCH (09:04)
[2017-09-02] MEDS: ABACAVIR SULFATE PER TUBE SCH ×2 (09:07→21:06)
--- NOTE | 2017-09-02 09:08 | PRG ---
DATE OF SERVICE: 09/02/2017 The patient was seen and examined. PHYSICAL EXAMINATION: VITAL SIGNS: Afebrile with temperature 97.5, pulse 83, respiratory 16, O2 sat 93% with a blood pres sure 95/42. HEENT: Unremarkable. Moist oral mucosa. Neck was supple. No conjunctival injection or icterus. CARDIOVASCULAR: First and second heart sounds were heard. RESPIRATORY: Clear to auscultation. DIGESTIVE: Revealed a benign abdomen with positive bowel sounds. EXTREMITIES: No peripheral edema. SKIN: No new gross rash. LYMPHATICS: No peripheral lymphadenopathy. IMPRESSION: 1. End-stage renal disease, hemodialysis dependent. 2. Axillary carbuncles status post incision and drainage. 3. Immunosuppressed due to retroviral infection. PLAN: 1. We will continue renal replacement therapy in accordance with the schedule of this patient on Mo , Friday and Friday. 2. Further management will be dependent on the clinical course.
[2017-09-02] MEDS: CEFTRIAXONE ROCEPHIN IVPB SCH (13:02)
[2017-09-02] MEDS: ADMIXTURE FEE CHEMO IVPB SCH (13:02)
[2017-09-02] MEDS: [UNRECOGNIZED DRUG - OTHER] IVPB SCH (13:02)
[2017-09-02] MEDS: Zolpidem Tartrate 5 MG TAB PER TUBE SCH (21:06)
[2017-09-02] MEDS: Oxybutynin ER 5 MG TAB PO SCH (21:07)
[2017-09-02] MEDS: Atorvastatin Calcium 40 MG TAB PER TUBE SCH (21:07)
[2017-09-03 05:38] VITALS: BMI 28.7
[2017-09-03] MEDS ORDERED: Heparin 10,000 UNITS/ 10 ML VIAL ONE (09:00)
--- NOTE | 2017-09-03 10:35 | PRG ---
DATE OF SERVICE: 09/03/2017 SUBJECTIVE: The patient was seen and examined today at dialysis. OBJECTIVE: GENERAL: Very sleepy, but arousable. VITAL SIGNS: Noted with the following vital signs. Afebrile with temperature 98.1, pulse 80, respi ratory rate 15, O2 sat 94% with a blood pressure 114/53. HEENT: Examination unremarkable, moist oral mucosa. Neck was supple. No conjunctival injection or icterus. CARDIOVASCULAR SYSTEM: First and second heart sounds were heard. RESPIRATORY SYSTEM: Clear to auscultation. DIGESTIVE SYSTEM: Revealed a benign abdomen. EXTREMITIES: No peripheral edema. SKIN: Examination, no new gross rash. LYMPHATICS: No peripheral lymphadenopathy. IMPRESSION: 1. End-stage renal disease, on hemodialysis. 2. Right axillary abscess, status post incision and drainage. PLAN: 1. The patient to continue with current regimen of dialysis treatment with ultrafiltration as karel ated by hemodynamics. 2. Further management to be dependent on the clinical course as well as further recommendation from the other specialty services.
[2017-09-03 13:00] VITALS: BP 132/74; TEMP 96.4
[2017-09-03] MEDS: ABACAVIR SULFATE PER TUBE SCH (13:11)
[2017-09-03] MEDS: Famotidine 20 MG TAB PER TUBE SCH (13:13)
[2017-09-03] MEDS: Sevelamer Carbonate 800 MG TAB PO SCH (13:13)
[2017-09-03] MEDS: traZODone HCl 150 MG TAB PO SCH (13:16)
[2017-09-03] MEDS: Lactinex Tablet PER TUBE SCH (13:16)
[2017-09-03] MEDS: Isosorbide Mononitrate 20 MG TAB PO SCH (13:17)
[2017-09-03] MEDS: Ferrous Sulfate 325 MG TAB PO SCH (13:17)
[2017-09-03] MEDS: Polyethylene Glycol 3350 17 GM Packet PER TUBE SCH (13:17)
[2017-09-03] MEDS: Aspirin 81 mg Enteric Coated Tablet PER TUBE SCH (13:17)
[2017-09-03] MEDS: Pregabalin 75 MG CAP PER TUBE SCH (13:18)
[2017-09-03] MEDS: Furosemide 40 MG TAB PER TUBE SCH (13:19)
[2017-09-03] MEDS: FLUoxetine HCl 20 MG CAP PER TUBE SCH (13:19)
[2017-09-03] MEDS: Folic Acid 1 MG TAB PER TUBE SCH (13:20)
[2017-09-03] MEDS: Carvedilol 3.125 MG TAB PER TUBE SCH (13:20)
--- NOTE | 2017-09-04 13:40 | DIS ---
DATE OF ADMISSION: 08/27/2017 DATE OF DISCHARGE: 09/03/2017 ADMITTING DIAGNOSES: 1. Chest pain, rule out myocardial infarction. 2. Right axillary abscess. 3. End-stage renal disease, on hemodialysis. 4. Diffuse coronary artery disease. 5. Diabetes mellitus. 6. Hypertension. 7. Status post cerebrovascular accident. 8. Status post below knee amputation, bilateral. FINAL DIAGNOSES: 1. Chest pain. No evidence of myocardial infarction. 2. Diffuse coronary artery disease, inoperable. 3. Right axillary abscess, status post incision and drainage and status post wound VAC placement. 4. End-stage renal disease, on hemodialysis. 5. Diabetes mellitus. 6. Hypertension. 7. Status post cerebrovascular accident. 8. Status post below knee amputation, bilateral. 9. Retrovirus infection. BRIEF SUMMARY OF HOSPITAL COURSE: Ms. Veronica is a 51-year-old female admitted because o f chest pain as well as abscess in the right axilla. The patient was admitted to rule out NM. Seri al cardiac enzymes and troponins were mildly elevated, which is indeterminate range. A cardiology c onsult was done. The patient was seen by Dr. Glynn. She felt the patient had diffuse coronary arter y disease, no intervention is necessary. Adjustment and optimization of medications. Patient was i n need of surgery in view of her abscess in the right axilla. The patient was seen by Dr. Jeffery rogers r incision and drainage and debridement of the abscess in the right axilla. The patient underwent p rocedure after incision and drainage and debridement, wound VAC was placed. A consultation was also done with Infectious Disease with her growth of Proteus mirabilis. The patient was seen by Dr. Joss velásquez who felt patient had like she had before, which was isolated from the blood in the wound. He felt the patient had infection of the left graft with the same bacteria, so 2 blood cultures were done and they revealed no growth. The patient was getting Rocephin until now, and he said to jesus resendiz to Gokul, which can be given 3 times a week with dosing during dialysis days. He said to give it for at least for 6 weeks. So in view of that, the patient is being discharged back to alf . At the time of discharge, she was stable. Her vital signs were stable. Lungs clear. Heart soun ds regular. Abdomen was soft, nontender. Bowel sounds present. DISCHARGE MEDICATIONS: Include Sustiva 600 mg daily, Zofran p.r.n., Ditropan XL 5 mg daily, Tylenol p.r.n., vitamin C daily, Epivir 150 mg daily, Lactobacillus Acidophilus b.i.d., Lipitor 40 mg daily , folic acid 0.8 mg daily, ferrous sulfate 325 mg daily, abacavir 600 mg b.i.d., tramadol 50 q.i.d. p.r.n., trazodone 150 at bedtime, Coreg 3.125 daily, Zoloft 50 mg daily, Renvela 2.4 grams daily, Mi raLax 17 grams daily, Imdur 20 b.i.d., Lasix 40 b.i.d., DuoNebs q.i.d. p.r.n., Ambien p.r.n. 5 mg, S eroquel 200 mg daily, nitroglycerin p.r.n., ranitidine 300 mg daily, Colace 100 mg daily, lactulose 20 grams daily, Lyrica 75 b.i.d., Prozac 20 mg daily, aspirin 81 mg daily, Vantin 400 mg Friday, Fri, Friday for 6 weeks. The patient will have wound VAC care at the alf.
== END 2017-09-03 14:15 | DRG 264 ==
LOC: ERS 03:05 → 2NO 04:45
PROVIDERS: ADMIT Internal Medicine; ATTEND Internal Medicine
PROC: 5A1D70Z Performance of Urinary Filtration, Intermittent, Less than 6 Hours Per Day (ICD-10-PCS; 2017-08-27)
PROC: 0JBD0ZZ Excision of Right Upper Arm Subcutaneous Tissue and Fascia, Open Approach (ICD-10-PCS; principal; 2017-08-29)
DX: I25.10 Atherosclerotic heart disease of native coronary artery without angina pectoris (principal); B20 Human immunodeficiency virus [HIV] disease; I12.0 Hypertensive chronic kidney disease with stage 5 chronic kidney disease or end stage renal disease; N18.6 End stage renal disease; L02.411 Cutaneous abscess of right axilla; E11.22 Type 2 diabetes mellitus with diabetic chronic kidney disease; R07.9 Chest pain, unspecified; Z66 Do not resuscitate; Z23 Encounter for immunization; Z86.73 Personal history of transient ischemic attack (TIA), and cerebral infarction without residual deficits; Z99.2 Dependence on renal dialysis; Z89.512 Acquired absence of left leg below knee; Z89.511 Acquired absence of right leg below knee; Z93.1 Gastrostomy status; L73.2 Hidradenitis suppurativa; D64.9 Anemia, unspecified
CPT/HCPCS: 36415; 36416; 71010; 80048; 80053; 82550; 82553; 83690; 84484; 85025; 87040; 87070; 87077; 87186; 87205; 87340; 88304; 90471; 90682; 90732; 90935; 93005; 93010; 96365; 96372; A4216; G0008; G0009; G0257; G8978-GP-CM; G8979-GP-CK; G8996-GN-CN; G8997-GN-CN; J0696; J1644; J1650; J1815; J2704; J3010; J3370; J3490; J7050; Q2036; S0020

== ENCOUNTER 2017-10-29 10:36 | Emergency (ER) | payer MEDICARE, MEDICAID ==
[2017-10-29 11:34] LABS: #Eosinphils 0.6 thou/uL (0.0-0.7); #Lymphocytes 1.2 thou/uL (1.20-3.40); #Monocytes 0.8 thou/uL (0.11-0.59); #Neutrophils 3.7 thou/uL (1.40-6.50); %Basophils 0.4 % (0.0-1.0); %Eosinophils 9.7 % (0.0-10.0); %Lymphocytes 19.3 % (21.0-51.0); %Monocytes 12.2 % (0.0-10.0); Mean Platelet Volume 9.4 fL (7.4-10.4); Red Blood Cell (RBC) Count 3.43 mill/uL (4.20-5.40); White Blood Cell (WBC) Count 6.4 thou/uL (4.8-10.8)
[2017-10-29 11:37] LABS: PTT 29.2 SEC (22.9-36.1); Prothrombin Time 14.8 SEC (12.0-14.7)
[2017-10-29 11:49] LABS: ALT (SGPT) 16 U/L (8-55); AST (SGOT) 15 U/L (5-34); Alkaline Phosphatase 209 U/L (40-150); Anion Gap 22 mmol/L (10-20); BUN (Urea Nitrogen) 84 mg/dL (7.0-18.7); Bilirubin, Total 0.5 mg/dL (0.2-1.2); Calc. Creatinine Clearance 0 mL/min (70-130); Calcium 7.9 mg/dL (7.8-10.44); Carbon Dioxide 20 mmol/L (22-29); Chloride 98 mmol/L (98-107); Estimated GFR-MDRD 7; Globulin 3.8 g/dL (2.4-3.5)
[2017-10-29 11:53] LABS: Macrocytosis SLIGHT = 6-15 cells (100X) (0-5/hpf)
[2017-10-29 11:54] LABS: Troponin I 0.053 ng/mL (< 0.028)
[2017-10-30] MEDS ORDERED: Heparin 10,000 UNITS/ 10 ML VIAL ONE (11:03)
== END 2017-10-29 20:32 ==
LOC: ERS 10:36
DX: E87.5 Hyperkalemia (principal); I13.0 Hypertensive heart and chronic kidney disease with heart failure and stage 1 through stage 4 chronic kidney disease, or unspecified chronic kidney disease; I50.9 Heart failure, unspecified; N18.9 Chronic kidney disease, unspecified; I25.2 Old myocardial infarction; B20 Human immunodeficiency virus [HIV] disease; I25.10 Atherosclerotic heart disease of native coronary artery without angina pectoris; J44.9 Chronic obstructive pulmonary disease, unspecified; F32.9 Major depressive disorder, single episode, unspecified; Z79.4 Long term (current) use of insulin; Z87.891 Personal history of nicotine dependence
CPT/HCPCS: 36415; 80053; 82553; 84484; 85025; 85610; 85730; 90935; 93005; G0257

== ENCOUNTER 2017-11-17 09:46 | Emergency (ER) | payer MEDICARE, MEDICAID ==
--- NOTE | 2017-11-17 10:59 | RAD ---
AP CHEST: Indication: Chest pain. Comparison: 12-28-16 FINDINGS: There is cardiomegaly with pulmonary vascular congestion. There is a tiny left pleural effusion. No p neumothorax is evident. Endovascular stent involving the right upper extremity is stable to the myles rison. IMPRESSION: Findings suggesting volume overload or CHF. POS: [facility]
== END 2017-11-17 12:24 | disposition home or self-care (01) ==
LOC: ERS 09:46
DX: R07.89 Other chest pain (principal); I12.0 Hypertensive chronic kidney disease with stage 5 chronic kidney disease or end stage renal disease; N18.6 End stage renal disease; E11.22 Type 2 diabetes mellitus with diabetic chronic kidney disease; E11.21 Type 2 diabetes mellitus with diabetic nephropathy; E78.5 Hyperlipidemia, unspecified; F32.9 Major depressive disorder, single episode, unspecified; F03.90 Unspecified dementia, unspecified severity, without behavioral disturbance, psychotic disturbance, mood disturbance, and anxiety; K21.9 Gastro-esophageal reflux disease without esophagitis; J44.9 Chronic obstructive pulmonary disease, unspecified; Z87.891 Personal history of nicotine dependence; Z79.899 Other long term (current) drug therapy
CPT/HCPCS: 71045; 93005; 94760

== ENCOUNTER 2017-12-15 09:39 | Inpatient (IN) | payer MEDICARE, MEDICAID ==
[2017-12-15 10:30] LABS: #Basophils 0.1 thou/uL (0.0-0.2); #Eosinphils 0.5 thou/uL (0.0-0.7); #Lymphocytes 1.1 thou/uL (1.20-3.40); #Monocytes 0.7 thou/uL (0.11-0.59); #Neutrophils 7.1 thou/uL (1.40-6.50); %Basophils 0.7 % (0.0-1.0); %Eosinophils 5.1 % (0.0-10.0); %Lymphocytes 11.2 % (21.0-51.0); %Monocytes 7.9 % (0.0-10.0); %Neutrophils 75.2 % (42.0-75.0); Hemoglobin 13.6 g/dL (12.0-16.0); Mean Corpuscular HGB CONC 33.1 g/dL (32.0-36.0); Mean Corpuscular Hemoglobin 35.3 pg (27.0-31.0); Platelet Count 154 thou/uL (130-400); RBC Distribution Width 12.2 % (11.5-14.5); Red Blood Cell (RBC) Count 3.86 mill/uL (4.20-5.40); White Blood Cell (WBC) Count 9.4 thou/uL (4.8-10.8)
[2017-12-15 10:42] LABS: BHCG - Serum Negative (NEGATIVE); INR-International Normal Ratio 1.1; PTT 28.6 SEC (22.9-36.1); Pregs Control Background? CLEAR/WHITE (CLR/WHITE); Pregs Control Bar Appear? YES (CONTROL BAR); Prothrombin Time 14.2 SEC (12.0-14.7)
[2017-12-15 10:56] LABS: ALT (SGPT) 23 U/L (8-55); AST (SGOT) 44 U/L (5-34); Albumin 3.3 g/dL (3.5-5.0); Alkaline Phosphatase 227 U/L (40-150); Anion Gap 24 mmol/L (10-20); BUN (Urea Nitrogen) 118 mg/dL (9.8-20.1); Bilirubin, Total 0.6 mg/dL (0.2-1.2); Calc. Creatinine Clearance 0 mL/min (70-130); Carbon Dioxide 24 mmol/L (22-29); Chloride 95 mmol/L (98-107); Estimated GFR-MDRD 6; Globulin 3.9 g/dL (2.4-3.5); Glucose 96 mg/dL (70-105); Lipase 151 U/L (8-78); Magnesium 2.2 mg/dL (1.6-2.6); Potassium 5.8 mmol/L (3.5-5.1); Protein, Total 7.2 g/dL (6.0-8.3); Sodium 137 mmol/L (136-145)
--- NOTE | 2017-12-15 11:03 | RAD ---
SINGLE VIEW OF THE CHEST: HISTORY: Low blood pressure and dizziness. COMPARISON: 11/17/2017 FINDINGS: Single view of the chest show normal sized cardiomediastinal silhouette. There is no evidence of cons olidation, mass, or pleural effusion. The bones are unremarkable. IMPRESSION: No evidence of acute cardiopulmonary disease. POS: [facility]
[2017-12-15 11:09] LABS: Phosphorus 10.7 mg/dL (2.3-4.7)
[2017-12-15 12:09] LABS: CKMB 52.3 ng/mL (0-6.6)
[2017-12-15] MEDS ORDERED: Aspirin 300 MG Suppository PR SCH ×2 (14:00→15:30)
[2017-12-15] MEDS ORDERED: Heparin 25,000 units/D5W 500 ML IVPB SCH (14:00)
[2017-12-15 14:43] LABS: Platelet Count 171 thou/uL (130-400)
[2017-12-15 17:33] VITALS: BP 86/44; BMI 31.0
[2017-12-15] MEDS: Heparin 10,000 UNITS/ 10 ML VIAL SLOW IVP SCH (17:55)
[2017-12-15] MEDS ORDERED: Sodium Chloride 0.9% 250 ML IV SCH (18:00)
[2017-12-15 18:09] LABS: Hemoglobin 13.8 g/dL (12.0-16.0); Platelet Count 171 thou/uL (130-400)
[2017-12-15 18:36] LABS: PTT Greater than 250.0 SEC (22.9-36.1)
[2017-12-15] MEDS ORDERED: Norepinephrine 8 MG in Sodium Chloride 0.9% 250 ML 250 ML IVPB PRN (18:46)
[2017-12-15] MEDS ORDERED: Ondansetron HCl/PF 4 MG/2 ML Vial SLOW IVP PRN (20:10)
[2017-12-15] MEDS ORDERED: Famotidine/PF 20 mg/2ml Vial SLOW IVP SCH (21:00)
--- NOTE | 2017-12-15 21:01 | HP ---
CHIEF COMPLAINT: Chest pain. HISTORY OF PRESENT ILLNESS: This is a 52-year-old -[place] female with a known history of pe ripheral vascular disease, prior CVA, end-stage renal disease on hemodialysis, HIV, diffuse nonoperab le coronary artery disease, diabetes who presents with a chief complaint of chest pain. Patient stat es that she often has episodes of chest pain and admits that she is frequently seen in our facility f or chest pain which she typically describes as chest pressure; however, today's chest pressure is muc h more severe than it has been in the past. Of note, patient is a very poor historian with poor recall. She is able to provide answers, but reca lls very little of her prior history and so what is provided here is a combination of what she is abl e to verbalize and when I am able to draw from prior records. Patient otherwise says that she feels very uncomfortable and scared and otherwise has no other focal complaints at this point in time. At the time of my evaluation, the patient states that this patient is not able to endorse any change in how she has felt at the time of my evaluation versus when she f irst presented to the emergency department. REVIEW OF SYSTEMS: As per HPI. Constitutional: The patient denies any overt fevers or chills at th is point in time, but is unable to recall any further history in terms of how she has been feeling ov er the last 2 weeks. Head/Neck: Denies any vision changes or headaches at this point in time. Vinicius es any new difficulties with speech. Cardiovascular: Chest pressure and chest pain as described abo ve. Denies any overt nausea or vomiting. Respiratory: Denies any shortness of breath, particularly while at rest, accompanied. Denies any recent upper respiratory infection type symptoms including c ough, sinus congestion, postnasal drip. Musculoskeletal: Other than chest pressure, denies any new myalgias or arthralgias. PAST MEDICAL HISTORY: As per above includes the followin. End-stage renal disease on hemodialysis. 2. Diffuse coronary artery disease described as nonoperable in prior documentation. 3. Peripheral vascular disease. 4. Hypertension. 5. Diabetes. 6. HIV. 7. Status post bilateral BKA, felt to be secondary to peripheral vascular disease. 8. Status post PEG tube placement. 9. Status post hysterectomy. HOME MEDICATIONS: The patient is unable to recall at the top of her head any of the home medications or whether or not there have been any recent changes to them. ALLERGIES: CODEINE, PENICILLIN, MORPHINE, SULFA. FAMILY HISTORY: The patient is unable to provide an accurate family history. SOCIAL HISTORY: The patient is ; however, I have been unable to reach the significant other. At this point in time, she is presumed to be FULL CODE as I am concerned about her ability to fully understand her current health issues and current situation. The patient is a former smoker. She alfaro s not endorse any active alcohol, tobacco or illicit drug use. PHYSICAL EXAMINATION: VITAL SIGNS: Temperature 98.3, pulse of 81, respirations 22, satting 100% on room air, blood pressur e 86/44. GENERAL: The patient is awake. She is conversant. She is lying in the hospital bed, no overt distr ess, does have a flat affect. HEENT: Slightly dry mucous membranes. Equal ocular motions are intact. Pupils are equal and reacti ve. Normocephalic and atraumatic. The patient is on 2 liters nasal cannula. CARDIOVASCULAR: S1, S2, soft heart tones. Pulses 2+ bilateral upper extremities. RESPIRATORY: Limited anterior examination; however, grossly reasonable air movement. No wheezes, ra les or rhonchi. ABDOMEN: Positive bowel sounds, soft. EXTREMITIES: Nontender to palpation. NEUROLOGICAL: The patient is conversant. She is able to follow simple commands and answer direct qu estions appropriately. LABORATORY DATA AND IMAGING: WBC 9.4, hemoglobin 13.6, hematocrit 41.0, platelets 154. PT 14.2, INR 1.1, APTT 28.6. Sodium 137, potassium 5.8, chloride 95, bicarbonate 24, BUN 118, creatinine 8.98, g lucose 96, calcium 8.0, phosphorus 10.7, AST 44, ALT 23, alkaline phosphatase 227. CK-MB 52.3. Trop onin initial is 8.4, followup is 25.0. Albumin 3.3, lipase 151. Serum is negative. EKG: No ST or T-wave elevations consistent with an ST FL. Emergency department chest x-ray, impression, no evidence of acute cardiopulmonary disease. ASSESSMENT AND PLAN: A 52-year-old female presenting with a chief complaint of chest pain. 1. Chest pain with a clinical presentation consistent with a non-ST elevation myocardial infarction. I appreciate Cardiology consultation. I did discuss with Dr. Randolph. Unfortunately, the patient has known nonoperable cardiovascular disease. At this point in time, we will attempt to focus on reagan henry medical management. Given the patient's episode of chest pressure with a significant magnitude of troponin elevation, accompanying hypotension, I am concerned that the patient's overall prognosis is very poor. I have discussed this with the patient at bedside, but I am concerned in regards to h er ability to fully comprehend and attempting to reach the patient's next of kin, which is listed as her significant other or . The patient has been ordered on a heparin drip and we will continu e on thus. We would avoid nitroglycerin and utilize aspirin as well. Serial troponin, repeat EKG an d echocardiogram in the morning. Vaso support if needed. We will start with norepinephrine. 2. End-stage renal disease was initially slated for hemodialysis today. I appreciate Nephrology con sultation. Discussed with Dr. Yeung. The patient overall has a very poor prognosis. Concern i s for the patient's ability to tolerate hemodialysis. We will dialyze the patient when she is suffic iently stable to undergo dialysis or renal replacement therapy. 3. Hyperkalemia. We will serially monitor the patient's potassium, to consider Kayexalate or tempor lainey stabilizing measures if she develops hyperkalemia. She is understood to be at elevated risk for developing symptomatic hyperkalemia secondary to her inability to obtain dialysis from her hemodynami c instability. 4. Diabetes. Serial Accu-Cheks. Maintain the patient on sliding scale insulin. 5. Hypertension. Patient is currently hypotensive. We will hold all home antihypertensive regimens . The patient has been given 250 mL bolus. Attempts at fluid resuscitation, I will need to be cauti ous as the patient is at high risk for fluid overload and given her hemodynamic instability, we would have difficulty potentially removing that fluid subsequently. 6. Known history of peripheral vascular disease. 7. History of cerebrovascular accident. 8. Activity: I would recommend bed rest at this point in time. 9. Deep venous thrombosis prophylaxis, currently on full anticoagulation with heparin. The patient was initially admitted to med/surg with telemetry, has been transferred to [facility] due to he r acuity. Patient overall has a very poor prognosis. She is presumed to be FULL CODE as per the dis cussion above. Greater than 40 minutes of critical care time spent at bedside coordinating care for the patient. Thank you for asking me to care for this patient.
[2017-12-15] MEDS ORDERED: Nitroglycerin 2% Ointment 1 INCH/1 GM Packet TOP PRN (21:46)
[2017-12-16 04:18] LABS: #Eosinphils 0.6 thou/uL (0.0-0.7); #Lymphocytes 0.9 thou/uL (1.20-3.40); #Monocytes 0.7 thou/uL (0.11-0.59); #Neutrophils 5.6 thou/uL (1.40-6.50); %Basophils 0.5 % (0.0-1.0); %Eosinophils 7.6 % (0.0-10.0); %Lymphocytes 11.2 % (21.0-51.0); %Monocytes 9.1 % (0.0-10.0); %Neutrophils 71.6 % (42.0-75.0); Hemoglobin 14.6 g/dL (12.0-16.0); Mean Corpuscular HGB CONC 33.4 g/dL (32.0-36.0); Mean Corpuscular Hemoglobin 35.5 pg (27.0-31.0); Mean Platelet Volume 8.6 fL (7.4-10.4); Platelet Count 156 thou/uL (130-400); RBC Distribution Width 12.3 % (11.5-14.5); White Blood Cell (WBC) Count 7.8 thou/uL (4.8-10.8)
--- NOTE | 2017-12-16 04:34 | CON ---
DATE OF CONSULTATION: 12/15/2017 HISTORY OF PRESENT ILLNESS: Krys Veronica is a 52-year-old black female with severe 3-vessel fan ry artery disease, which is felt to be inoperable and also not amendable to angioplasty or stenting. She also has history of cardiomyopathy with ejection fraction of 10%-15% in the past. She has end-s tage renal disease and is on dialysis. She came to the hospital today due to low blood pressure, lig htheaded, and started to have episodes of chest discomfort and positive cardiac enzymes. She has had multiple admissions in the past for chest pain. PAST MEDICAL HISTORY: End-stage renal disease, history of CVA, history of HIV, 3-vessel coronary art ted disease which is inoperable, ischemic cardiomyopathy with ejection fraction of 10%-15% in the pas t, diabetes, and hypertension. MEDICATIONS: Aspirin 81 daily, atorvastatin 40 daily, carvedilol 3.125 daily, Colace 100 daily, Sust chelsey 600 at bedtime, Prozac 20 daily, furosemide 40 mg b.i.d., Imdur b.i.d., nitroglycerin p.r.n., Zol oft 50 daily, Zantac 300 daily, Ambien 5 mg at bedtime p.r.n. The accuracy of this was done, the dos ages are not certain. ALLERGIES: CODEINE, PENICILLINS, MORPHINE, and SULFA. OPERATIONS: Left AKA, right BKA. SOCIAL HISTORY: She states she has never smoked. She lives in nursing. FAMILY HISTORY: Illicit drug usage. PHYSICAL EXAMINATION: VITAL SIGNS: Blood pressure 86/44, pulse of 81. HEENT: PERRL. NECK: Supple. CHEST: Reveals rhonchi bilaterally. CARDIAC EXAMINATION: S1 and S2 are normal, without any S3, S4. ABDOMEN: Normal bowel sounds, without tenderness. EXTREMITIES: Revealed left AKA, right BKA with 1+ edema, both extremities. NEUROLOGIC: Patient has mild slurring of her speech. LABORATORY DATA: EKG revealed normal sinus rhythm with low voltage QRS, avoiding anterolateral infar ction. Hemoglobin 13.8, hematocrit 41.7, white count 9400. PTT is greater than 250 on heparin. Sod ium 137, potassium 5.8, chloride 95, carbon dioxide 24, BUN 118, creatinine 8.98, phosphorus 10.7. C K-MB 52.3. Troponin I 0.050, which is increased to 25.010. IMPRESSION: 1. Lwo-EN-otanhpa elevation myocardial infarction. 2. Severe 3-vessel coronary artery disease which is inoperable, not amendable to intervention. 3. Severe ischemic cardiomyopathy with ejection fraction of 10%-15% in the past. 4. End-stage renal disease on dialysis. 5. Hypotension, which may be related to her current myocardial infarction, but other etiologies need to be evaluated. 6. Status post left gabgb-mga-cuqr amputation and right vkgan-iww-sjls amputation. 7. History of cerebrovascular accident disease. 8. History of human immunodeficiency virus. PLAN: Current followup is obtain IV access with her PTT very elevated. It has to be made to obtain a centr al line once her PTT has fallen and consideration can be given to treatment with Levophed. Overall, her prognosis with inoperable 3-vessel coronary artery disease and ejection fraction of 10-15% in the past is extremely poor. From a cardiac standpoint, she certainly is not a candidate for any type of intervention.
[2017-12-16 04:42] LABS: ALT (SGPT) 25 U/L (8-55); AST (SGOT) 77 U/L (5-34); Albumin 3.1 g/dL (3.5-5.0); Alkaline Phosphatase 213 U/L (40-150); Anion Gap 15 mmol/L (10-20); BUN (Urea Nitrogen) 44 mg/dL (9.8-20.1); Bilirubin, Total 0.5 mg/dL (0.2-1.2); Calc. Creatinine Clearance 19 mL/min (70-130); Calcium 8.5 mg/dL (7.8-10.44); Carbon Dioxide 29 mmol/L (22-29); Cardiac Risk 2.9 (Less than 4.5); Chloride 99 mmol/L (98-107); Cholesterol 127 mg/dl (< 200 Desired); Estimated GFR-MDRD 11; Globulin 3.9 g/dL (2.4-3.5); Glucose 102 mg/dL (70-105); HDL Cholesterol 44 mg/dL (>60 Neg Risk); LDL Cholesterol, Calculated 69 mg/dL; Potassium 4.5 mmol/L (3.5-5.1); Sodium 138 mmol/L (136-145); Triglycerides 70 mg/dL (Less than 150)
[2017-12-16] MEDS: Heparin 10,000 UNITS/ 10 ML VIAL SLOW IVP SCH (07:22)
[2017-12-16] MEDS ORDERED: Aspirin 81 mg Enteric Coated Tablet PO SCH (11:00)
[2017-12-16 11:09] LABS: PTT 120.9 SEC (22.9-36.1)
[2017-12-16 11:21] VITALS: TEMP 98.6
--- NOTE | 2017-12-16 12:37 | PDOC.PN ---
- Subjective Encounter Start Date: 12/16/17 Encounter Start Time: 15:47 CC: Chest pain Sub: Pt denies chest pain, denies dyspnea - Objective Resuscitation Status: Resuscitation Status FULL:Full Resuscitation Vital Signs & Weight: Vital Signs (12 hours) Temp Pulse Resp 12/16/17 11:00 98.6 F 12/16/17 08:00 98.7 F 67 18 12/16/17 04:00 98.6 F Weight Weight 192 lb 8 oz Most Recent Monitor Data Heart Rate from ECG 74 NIBP 95/63 NIBP BP-Mean 80 Respiration from ECG 18 SpO2 100 I&O: 12/15/17 12/16/17 12/17/17 06:59 06:59 06:59 Intake Total 165 Balance 165 Result Diagrams: 12/16/17 04:11 12/16/17 04:11 Additional Labs: Accuchecks 12/16/17 12/15/17 04:10 20:42 POC Glucose 93 109 Phys Exam - Physical Examination Constitutional: NAD HEENT: moist MMs Neck: no JVD Respiratory: no wheezing, no rales, no rhonchi no accessory muscle usag eseen Cardiovascular: RRR, no significant murmur, no rub Gastrointestinal: soft, non-tender distended, no guarding Musculoskeletal: no edema Neurological: non-focal Psychiatric: normal affect Skin: no rash Dx/Plan - Plan Pt is 52 yrs old female now admitte [facility] due to chest pain 1. NSTEMI: Cradio on bard Continue heparin drip per cardio recommendation. Continue current treatment 2. ESRD: Nephrology consulted hd per nephrology 3. H/O HTN: Monitor bp closely Continue bp meds 4. Code status: Pt used to be in hospice prior to coming to hospital. Need to verify code status with family. Attempted to reach contact center specialist from [facility] but not able to reach them
--- NOTE | 2017-12-16 19:33 | DIS ---
DATE OF ADMISSION: 12/15/2017 DATE OF DISCHARGE: 12/16/2017 DISCHARGE DIAGNOSES: 1. Caz-UT-yieiylw elevation myocardial infarction. 2. Hypertension. 3. End-stage renal disease. 4. Anemia of chronic disease. 5. History of human immunodeficiency virus. 6. History of below-knee amputation. DISCHARGE CONDITION: Poor. DISPOSITION: To hospice. DISCHARGE MEDICATIONS: See med rec form. CONSULTANTS DURING HOSPITAL STAY: 1. Critical Care Team. 2. Cardiology. 3. Nephrology. HOSPITAL COURSE: Patient is a 52-year-old female admitted secondary to chest pain and non-STEMI. Andres jara was seen by Cardiology during the hospital stay, Cardiology recommended. Patient was started o n a heparin drip initially. Patient has a poor prognosis. Cardiology recommended no further interve ntion. Patient was seen by Pulmonary Critical Care and recommended no further treatment. Patient's family wants to take patient back to hospice and so patient was discharged back to [facility] with hospice as family requested.
[2017-12-16] MEDS ORDERED: Atorvastatin Calcium 40 MG TAB PO SCH (21:00)
--- NOTE | 2017-12-16 21:17 | EKG ---
Test Reason : Blood Pressure : / mmHG Vent. Rate : 091 BPM Atrial Rate : 091 BPM P-R Int : 192 ms QRS Dur : 122 ms QT Int : 434 ms P-R-T Axes : 070 138 141 degrees QTc Int : 533 ms Normal sinus rhythm Inferior infarct (cited on or before 30-MAY-2017) Anterolateral infarct (cited on or before 30-MAY-2017) Abnormal ECG When compared with ECG of 17-NOV-2017 09:56, (Unconfirmed) QRS axis Shifted right Questionable change in initial forces of Anterolateral leads ST now depressed in Anterolateral leads T wave inversion no longer evident in Inferior leads Confirmed by VERONICA HERNANDEZ ([id number]) on 12/16/2017 9:17:35 PM Referred By: BRIGHT Confirmed By:VERONICA HERNANDEZ
--- NOTE | 2017-12-17 01:10 | CON ---
DATE OF CONSULTATION: 12/16/2017 Ms. Veronica is a 52-year-old female. She lives in a care environment. She apparently has hospice i n the long-term. According to her sister and her significant other, the plans were never go to ad glenn her to the hospital again. She apparently developed change in blood pressure and chest discomfort during dialysis and was transf erred to the hospital. She has had a stroke and has difficulty communicating and has very poor memor y. She has been anticoagulated. Family was contacted by the palliative care nurse and they have informed me and the palliative care n abdoulayee that they do not want any of this and that they want her back at the long-term for comfort an d hospice care. PAST MEDICAL HISTORY: Not reliably obtainable from her. She has been seen and admitted by Dr. Yee in the past. In reviewing records, she has, 1. 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 History of hypertension. 3. History of end-stage renal disease on dialysis. 4. HIV positive. 5. History of PEG tube. 6. History of hysterectomy. When she was in the hospital in August she was on her antiretroviral medications, Lipitor, Coreg, Mortensen stiva, iron, Prozac, DuoNeb, folate, Imdur, lactulose, nitroglycerin, MiraLax, Seroquel, Zoloft, Renv tiara, and tramadol. FAMILY HISTORY: Negative for lung disease at an early age. It is positive for vascular disease. ALLERGIES: She reports allergies to PENICILLIN, SULFA, CODEINE and MORPHINE. SOCIAL HISTORY: She lives in the [facility]. She is a nonsmoker, nondrinker. She does n ot use drugs. REVIEW OF SYSTEMS: Not obtainable because of her stroke and her memory issues. PHYSICAL EXAMINATION: VITAL SIGNS: Blood pressure 74/59, heart rate 76, respiratory rate 21. Oximetry is 100 Sclerae is a nicteric. Extraocular movements are full. She is hemiplegic. LUNGS: Clear. HEART: Regular rhythm. ABDOMEN: Soft. EXTREMITIES: She has no organomegaly, stumps are well healed. LABORATORY DATA: White count 7.8, hemoglobin 14.6, platelets 156. Sodium 138, potassium 4.5, chlori de 99, bicarbonate 29, BUN 44, creatinine 4.83. Chest x-ray done yesterday was reviewed. She has no pulmonary infiltrates, no mass lesions. IMPRESSION: End-stage vascular disease, peripheral vascular disease, cardiovascular disease, and ridge al vascular disease. Family wants her back at the long-term per her preexisting hospice status. I feel strongly that withdrawal dialysis should be considered. We have arranged transfer back to the long-term per family's request. We will continue as a do not resuscitate patient. This is a 70 minute consult with greater than 50% of the care spent on the unit with palliative care and nursing staff coordinating care.
== END 2017-12-16 17:40 | DRG 280 ==
LOC: ERS 09:39 → ERHOLD 13:25 → 2SE 17:17 → CCU 17:55
PROVIDERS: ADMIT Internal Medicine; ATTEND Internal Medicine
PROC: 5A1D70Z Performance of Urinary Filtration, Intermittent, Less than 6 Hours Per Day (ICD-10-PCS; principal; 2017-12-15)
DX: I21.4 Non-ST elevation (NSTEMI) myocardial infarction (principal); N18.6 End stage renal disease; B20 Human immunodeficiency virus [HIV] disease; E11.22 Type 2 diabetes mellitus with diabetic chronic kidney disease; I12.0 Hypertensive chronic kidney disease with stage 5 chronic kidney disease or end stage renal disease; I25.5 Ischemic cardiomyopathy; Z66 Do not resuscitate; E11.51 Type 2 diabetes mellitus with diabetic peripheral angiopathy without gangrene; E87.5 Hyperkalemia; I25.10 Atherosclerotic heart disease of native coronary artery without angina pectoris; D63.1 Anemia in chronic kidney disease; Z99.2 Dependence on renal dialysis; Z93.1 Gastrostomy status; Z87.891 Personal history of nicotine dependence; Z86.73 Personal history of transient ischemic attack (TIA), and cerebral infarction without residual deficits; Z88.5 Allergy status to narcotic agent; Z88.0 Allergy status to penicillin; Z88.2 Allergy status to sulfonamides; Z79.82 Long term (current) use of aspirin; Z79.899 Other long term (current) drug therapy; Z89.512 Acquired absence of left leg below knee; Z89.511 Acquired absence of right leg below knee
CPT/HCPCS: 36415; 36416; 71045; 80053; 80061; 82553; 83690; 83735; 84100; 84484; 84703; 85025; 85610; 85730; 90935; 93005; 93010; 93306; 93798; G0257; G8996-GN-CN; G8997-GN-CL; J1644; J2405; J7050; S0028

== ENCOUNTER 2017-12-24 09:41 | Emergency (ER) | payer MEDICARE, MEDICAID ==
--- NOTE | 2017-12-24 10:56 | RAD ---
PORTABLE CHEST: History: Patient is on dialysis. Dyspnea. FINDINGS: Heart size is enlarged. Pulmonary vessels are mildly engorged. Parenchymal changes in the right base are slightly more prominent than the prior exam. This could be on the basis of mild edema change. I t hink it is less likely to represent infiltrate but could be atelectasis. Right axillary or brachial s tent is noted. IMPRESSION: Cardiomegaly with mild vascular engorgement. Slightly increased markings in the right lung base, more prominent than on the prior exam. Some of this is probably just related to portable technique. It co uld be atelectasis, less likely a developing infiltrate. POS: [facility]
[2017-12-24 11:02] LABS: #Eosinphils 0.1 thou/uL (0.0-0.7); #Lymphocytes 0.9 thou/uL (1.20-3.40); #Monocytes 1.3 thou/uL (0.11-0.59); #Neutrophils 7.8 thou/uL (1.40-6.50); %Basophils 0.3 % (0.0-1.0); %Eosinophils 1.5 % (0.0-10.0); %Lymphocytes 8.6 % (21.0-51.0); %Monocytes 12.6 % (0.0-10.0); Hemoglobin 12.2 g/dL (12.0-16.0); Mean Corpuscular HGB CONC 32.6 g/dL (32.0-36.0); Mean Corpuscular Hemoglobin 34.5 pg (27.0-31.0); Mean Platelet Volume 8.5 fL (7.4-10.4); Platelet Count 164 thou/uL (130-400); RBC Distribution Width 12.2 % (11.5-14.5); Red Blood Cell (RBC) Count 3.54 mill/uL (4.20-5.40); White Blood Cell (WBC) Count 10.1 thou/uL (4.8-10.8)
--- NOTE | 2017-12-24 11:02 | CT ---
CT BRAIN WITHOUT CONTRAST: Date: 12/24/17 HISTORY: Altered mental status, numbness and tingling in the medial aspect of the right forearm and hand. Katy ent is on dialysis. FINDINGS: Comparison made with exam of 08/15/17. Changes of cortical atrophy, chronic small vessel ischemic disease, and old left cerebellar infarctio n again seen. The ventricular size is appropriate and the basilar cisterns are patent. No evidence of acute infarct, hemorrhage, midline shift, or abnormal extra-axial fluid collections are seen. The [place] calvarium is intact. The visualized paranasal sinuses and mastoid air cells are well aerated. IMPRESSION: Stable exam. No CT evidence of acute intracranial process. POS: [facility]
[2017-12-24 11:23] LABS: ALT (SGPT) 27 U/L (8-55); AST (SGOT) 50 U/L (5-34); Alkaline Phosphatase 199 U/L (40-150); Anion Gap 28 mmol/L (10-20); BUN (Urea Nitrogen) 106 mg/dL (9.8-20.1); Bilirubin, Total 0.6 mg/dL (0.2-1.2); CK (CPK) 407 U/L (29-168); Calc. Creatinine Clearance 0 mL/min (70-130); Calcium 7.5 mg/dL (7.8-10.44); Carbon Dioxide 21 mmol/L (22-29); Chloride 95 mmol/L (98-107); Estimated GFR-MDRD 5; Globulin 3.7 g/dL (2.4-3.5); Glucose 118 mg/dL (70-105); Protein, Total 6.7 g/dL (6.0-8.3); Sodium 138 mmol/L (136-145)
[2017-12-24 11:31] LABS: CKMB 50.3 ng/mL (0-6.6); Troponin I 36.012 ng/mL (< 0.028)
== END 2017-12-24 14:57 | disposition home or self-care (01) ==
LOC: ERS 09:41
DX: I13.2 Hypertensive heart and chronic kidney disease with heart failure and with stage 5 chronic kidney disease, or end stage renal disease (principal); N18.9 Chronic kidney disease, unspecified; I50.9 Heart failure, unspecified; I25.10 Atherosclerotic heart disease of native coronary artery without angina pectoris; K21.9 Gastro-esophageal reflux disease without esophagitis; B20 Human immunodeficiency virus [HIV] disease; E78.5 Hyperlipidemia, unspecified; F03.90 Unspecified dementia, unspecified severity, without behavioral disturbance, psychotic disturbance, mood disturbance, and anxiety; F32.9 Major depressive disorder, single episode, unspecified; Z79.4 Long term (current) use of insulin; Z87.891 Personal history of nicotine dependence; Z79.899 Other long term (current) drug therapy; Z79.891 Long term (current) use of opiate analgesic
CPT/HCPCS: 36415; 70450; 71045; 80053; 82550; 82553; 84484; 85025; 93005; 94760

== ENCOUNTER 2017-12-31 19:47 | Emergency (ER) | payer MEDICARE, MEDICAID ==
[2017-12-31 21:24] LABS: ALT (SGPT) 314 U/L (8-55); AST (SGOT) 140 U/L (5-34); Alkaline Phosphatase 257 U/L (40-150); Anion Gap 25 mmol/L (10-20); BUN (Urea Nitrogen) 25 mg/dL (9.8-20.1); Band 1 % (5-11); Bilirubin, Total 0.5 mg/dL (0.2-1.2); Calc. Creatinine Clearance 0 mL/min (70-130); Calcium 9.3 mg/dL (7.8-10.44); Carbon Dioxide 26 mmol/L (22-29); Chloride 93 mmol/L (98-107); Eosinophils 2 % (0-10); Estimated GFR-MDRD 11; Globulin 5.1 g/dL (2.4-3.5); Glucose 175 mg/dL (70-105); Hemoglobin 15.7 g/dL (12.0-16.0); Lymphocytes 8 % (21-51); MDiff Complete? YES; Macrocytosis SLIGHT = 6-15 cells (100X) (0-5/hpf); Mean Corpuscular HGB CONC 32.5 g/dL (32.0-36.0); Mean Corpuscular Hemoglobin 34.5 pg (27.0-31.0); Mean Platelet Volume 9.5 fL (7.4-10.4); Monocytes 6 % (0-10); Neutrophil 83 % (42-75); PLT Morphology Comment Appears Adequate; Platelet Count 137 thou/uL (130-400); Potassium 4.5 mmol/L (3.5-5.1); Protein, Total 9.1 g/dL (6.0-8.3); RBC Distribution Width 12.6 % (11.5-14.5); Red Blood Cell (RBC) Count 4.56 mill/uL (4.20-5.40); Sodium 139 mmol/L (136-145); White Blood Cell (WBC) Count 10.7 thou/uL (4.8-10.8)
--- NOTE | 2017-12-31 22:17 | CT ---
CT ABDOMEN AND PELVIS WITHOUT CONTRAST STONE PROTOCOL 12/31/17 HISTORY: Abdominal pain. Right sided pain. Hypotension. COMPARISON: Right upper quadrant gallbladder ultrasound 02/28/17. FINDINGS: There is atelectasis in the lung bases. The heart size is enlarged. Extensive arterial medial sclerosis. PEG tube is present. Cholelithiasis is present. No free intraperitoneal gas or fluid. Kidneys are small. There is some superficial soft tissue as well as fascial thickening of the back. No dilated air fille d loops of large or small bowel. There appears to be a stent within the superior mesenteric artery. Evaluation of patency is limited. Bones are osteopenic. No lumbar spine compression fracture. IMPRESSION: 1. No hydroureteronephrosis and nephroureterolithiasis. No secondary evidence of recently passed stone. 2. Cholelithiasis. 3. Superior mesenteric artery stent. Evaluation for patency is limited. 4. Trace free fluid in the pelvis of unknown etiology. 5. Mild sclerosis of the sacrum bilaterally at S1 that can be seen with insufficiency fractures. POS: [facility]
== END 2018-01-01 01:12 ==
LOC: ERS 19:47
DX: I13.2 Hypertensive heart and chronic kidney disease with heart failure and with stage 5 chronic kidney disease, or end stage renal disease (principal); I50.9 Heart failure, unspecified; N18.6 End stage renal disease; E11.22 Type 2 diabetes mellitus with diabetic chronic kidney disease; Z79.4 Long term (current) use of insulin; B20 Human immunodeficiency virus [HIV] disease; J44.9 Chronic obstructive pulmonary disease, unspecified; F32.9 Major depressive disorder, single episode, unspecified; F03.90 Unspecified dementia, unspecified severity, without behavioral disturbance, psychotic disturbance, mood disturbance, and anxiety; Z87.891 Personal history of nicotine dependence; Z79.891 Long term (current) use of opiate analgesic; Z79.899 Other long term (current) drug therapy
CPT/HCPCS: 36415; 74176; 80053; 85025; 93005; 96360

== ENCOUNTER 2018-01-22 18:04 | Emergency (ER) | payer MEDICARE, MEDICAID ==
[2018-01-22 19:22] LABS: #Basophils 0.1 thou/uL (0.0-0.2); #Eosinphils 0.5 thou/uL (0.0-0.7); #Lymphocytes 1.4 thou/uL (1.20-3.40); #Monocytes 1.1 thou/uL (0.11-0.59); #Neutrophils 7.6 thou/uL (1.40-6.50); %Basophils 0.6 % (0.0-1.0); %Eosinophils 4.9 % (0.0-10.0); %Lymphocytes 12.9 % (21.0-51.0); %Monocytes 10.6 % (0.0-10.0); Hemoglobin 13.8 g/dL (12.0-16.0); Mean Corpuscular HGB CONC 33.6 g/dL (32.0-36.0); Mean Corpuscular Hemoglobin 34.2 pg (27.0-31.0); Mean Platelet Volume 8.6 fL (7.4-10.4); Platelet Count 148 thou/uL (130-400); RBC Distribution Width 12.7 % (11.5-14.5); Red Blood Cell (RBC) Count 4.04 mill/uL (4.20-5.40); White Blood Cell (WBC) Count 10.7 thou/uL (4.8-10.8)
[2018-01-22 19:39] LABS: CKMB 1.6 ng/mL (0-6.6); Troponin I 0.195 ng/mL (< 0.028)
[2018-01-22 19:45] LABS: ALT (SGPT) 22 U/L (8-55); AST (SGOT) 19 U/L (5-34); Albumin 3.5 g/dL (3.5-5.0); Alkaline Phosphatase 250 U/L (40-150); Anion Gap 23 mmol/L (10-20); BUN (Urea Nitrogen) 68 mg/dL (9.8-20.1); Bilirubin, Total 0.5 mg/dL (0.2-1.2); Calc. Creatinine Clearance 0 mL/min (70-130); Calcium 8.9 mg/dL (7.8-10.44); Carbon Dioxide 22 mmol/L (22-29); Chloride 97 mmol/L (98-107); Estimated GFR-MDRD 7; Globulin 4.4 g/dL (2.4-3.5); Glucose 149 mg/dL (70-105); Lipase 102 U/L (8-78); Potassium 4.4 mmol/L (3.5-5.1); Protein, Total 7.9 g/dL (6.0-8.3); Sodium 138 mmol/L (136-145)
[2018-01-22 21:46] LABS: Troponin I 0.177 ng/mL (< 0.028)
--- NOTE | 2018-03-13 14:23 | EKG ---
Test Reason : Blood Pressure : / mmHG Vent. Rate : 088 BPM Atrial Rate : 088 BPM P-R Int : 148 ms QRS Dur : 102 ms QT Int : 434 ms P-R-T Axes : 134 150 -79 degrees QTc Int : 525 ms Suspect arm lead reversal, interpretation assumes no reversal Undetermined rhythm Low voltage QRS Left posterior fascicular block Cannot rule out Anterior infarct , age undetermined Prolonged QT Abnormal ECG Confirmed by WILMER FAYE, DK Perales ([id number]), photography editor NORMAN ROLAND ([id number]) on 03/13/2018 2:23:34 PM Referred By: Confirmed By:DK GUILLEN MD
--- NOTE | 2018-03-13 14:33 | EKG ---
Test Reason : REPEAT EKG Blood Pressure : / mmHG Vent. Rate : 090 BPM Atrial Rate : 090 BPM P-R Int : 178 ms QRS Dur : 098 ms QT Int : 422 ms P-R-T Axes : 084 114 -36 degrees QTc Int : 516 ms Sinus rhythm with occasional Premature ventricular complexes Low voltage QRS Left posterior fascicular block Cannot rule out Anterior infarct , age undetermined T wave abnormality, consider lateral ischemia Prolonged QT Abnormal ECG When compared with ECG of 31-DEC-2017 No significant change was found Confirmed by WILMER FAYE, DK Perales ([id number]), content editor NORMAN ROLAND ([id number]) on 03/13/2018 2:32:45 PM Referred By: Confirmed By:DK GUILLEN MD
== END 2018-01-22 22:46 | disposition home or self-care (01) ==
LOC: ERS 18:04
DX: I95.9 Hypotension, unspecified (principal); J44.9 Chronic obstructive pulmonary disease, unspecified; I25.10 Atherosclerotic heart disease of native coronary artery without angina pectoris; K21.9 Gastro-esophageal reflux disease without esophagitis; B20 Human immunodeficiency virus [HIV] disease; E78.5 Hyperlipidemia, unspecified; I13.0 Hypertensive heart and chronic kidney disease with heart failure and stage 1 through stage 4 chronic kidney disease, or unspecified chronic kidney disease; E11.22 Type 2 diabetes mellitus with diabetic chronic kidney disease; N18.9 Chronic kidney disease, unspecified; I50.9 Heart failure, unspecified; I25.2 Old myocardial infarction; F32.9 Major depressive disorder, single episode, unspecified; F03.90 Unspecified dementia, unspecified severity, without behavioral disturbance, psychotic disturbance, mood disturbance, and anxiety; Z87.891 Personal history of nicotine dependence; Z86.73 Personal history of transient ischemic attack (TIA), and cerebral infarction without residual deficits; Z79.82 Long term (current) use of aspirin; Z99.2 Dependence on renal dialysis; Z79.899 Other long term (current) drug therapy
CPT/HCPCS: 36415; 80053; 82553; 83605; 83690; 84484; 85025; 93005; 96360

== ENCOUNTER 2018-02-02 09:31 | Inpatient (IN) | payer MEDICARE, MEDICAID ==
--- NOTE | 2018-02-02 10:16 | RAD ---
CHEST ONE VIEW: HISTORY: Dyspnea. COMPARISON: 12/24/2017 FINDINGS: The cardiac silhouette is magnified and enlarged. The pulmonary vasculature remains engorged with mi ld reticulonodular interstitial prominence. The mediastinum is midline. No lobar consolidation or e vidence of pneumothorax. IMPRESSION: Cardiomegaly and pulmonary vascular congestion are similar in appearance to the previous exam. POS: [facility]
[2018-02-02 10:58] LABS: Hemoglobin 12.4 g/dL (12.0-16.0); Mean Corpuscular HGB CONC 31.7 g/dL (32.0-36.0); Mean Corpuscular Hemoglobin 33.3 pg (27.0-31.0); Mean Platelet Volume 9.4 fL (7.4-10.4); Platelet Count 199 thou/uL (130-400); RBC Distribution Width 13.3 % (11.5-14.5); Red Blood Cell (RBC) Count 3.74 mill/uL (4.20-5.40); White Blood Cell (WBC) Count 10.5 thou/uL (4.8-10.8)
[2018-02-02 11:04] LABS: INR-International Normal Ratio 1.4; PTT 31.4 SEC (22.9-36.1)
[2018-02-02 11:12] LABS: ALT (SGPT) 26 U/L (8-55); AST (SGOT) 40 U/L (5-34); Albumin 3.3 g/dL (3.5-5.0); Alkaline Phosphatase 214 U/L (40-150); Anion Gap 26 mmol/L (10-20); BUN (Urea Nitrogen) 86 mg/dL (9.8-20.1); Bilirubin, Total 0.5 mg/dL (0.2-1.2); CK (CPK) 354 U/L (29-168); Calc. Creatinine Clearance 0 mL/min (70-130); Calcium 8.5 mg/dL (7.8-10.44); Carbon Dioxide 21 mmol/L (22-29); Chloride 99 mmol/L (98-107); Estimated GFR-MDRD 5; Globulin 4.2 g/dL (2.4-3.5); Glucose 211 mg/dL (70-105); Lipase 43 U/L (8-78); Potassium 5.5 mmol/L (3.5-5.1); Protein, Total 7.5 g/dL (6.0-8.3); Sodium 140 mmol/L (136-145)
[2018-02-02 11:19] LABS: CKMB 15.5 ng/mL (0-6.6)
[2018-02-02 11:20] LABS: D-Dimer Test 1.91 *mcg/mL (0.27-0.43)
[2018-02-02 11:35] LABS: #Eosinphils 0.1 thou/uL (0.0-0.7); #Lymphocytes 1.1 thou/uL (1.20-3.40); #Monocytes 0.7 thou/uL (0.11-0.59); #Neutrophils 8.6 thou/uL (1.40-6.50); %Basophils 0.3 % (0.0-1.0); %Eosinophils 1.2 % (0.0-10.0); %Lymphocytes 9.9 % (21.0-51.0); %Monocytes 6.5 % (0.0-10.0); %Neutrophils 82.1 % (42.0-75.0); Hypochromia SLIGHT = 6-15 cells (100X) (0-5/hpf); MDiff Complete? YES; Macrocytosis SLIGHT = 6-15 cells (100X) (0-5/hpf); PLT Morphology Comment Appears Adequate
[2018-02-02] MEDS ORDERED: Lorazepam 2 MG/ML VIAL ONE (13:03)
--- NOTE | 2018-02-02 13:04 | CON ---
DATE OF CONSULTATION: 02/02/2018 REASON FOR CONSULTATION: Elevated troponin and chest pain. PRIMARY PROGRAM DIRECTOR/MUSIC DIRECTOR: Dr. Ayesha Carter. HISTORY OF PRESENT ILLNESS: Ms. Veronica is an unfortunate 52-year-old woman with history of severe underlying coronary artery disease, felt to be inoperable in addition to end-stage renal disease and HIV, in addition to severe PVD, status post bilateral AKA, who recently presented with chest pain. S he has had multiple hospitalizations and ER admissions for the above. She states during my history, she has had pain over the last month. The pain has waxed and waned. The pain is worse with deep maritza ath and described as sharp. Her troponin is positive. During her last hospitalization in December, her troponin was also positive and was estimated at 36. Medical therapy is recommended. She has als o been profoundly hypotensive with blood pressure in the 80s in addition to ischemic cardiomyopathy w ith LVEF of 10% to 15%. PAST MEDICAL HISTORY: As above including CVA, 3-vessel coronary artery disease, deemed inoperable. MEDICATIONS: Include aspirin, atorvastatin, carvedilol, Colace, Sustiva, Prozac, Lasix, Imdur, Zanta c and Zoloft. ALLERGIES: CODEINE, PENICILLIN, MORPHINE and SULFA. SOCIAL HISTORY: No current tobacco or alcohol use. She was an out of hospital DNR, but has now been revoked. REVIEW OF SYSTEMS: Ten-point review of systems is reviewed and as above, otherwise negative. PHYSICAL EXAMINATION: GENERAL: She does appear much older than stated age. She does not appear to be in moderate or sever e distress. VITAL SIGNS: Blood pressure 80s/50s, pulse 103 and respirations 20. NEUROLOGIC: The patient is alert and oriented x3 with no focal neurologic deficits. HEENT: Sclerae without icterus. Mouth has moist mucous membranes with normal pallor. NECK: No JVD. Carotid upstroke brisk. No bruits bilaterally. LUNGS: Clear to auscultation with unlabored respirations. BACK: No scoliosis or kyphosis. CARDIAC: Regular rate and rhythm with normal S1 and S2. No S3 or S4 noted. No significant rubs, mu rmurs, thrills, or gallops noted throughout the precordium. PMI is not displaced. There is no nano ternal heave. ABDOMEN: Soft, nontender, nondistended. No peritoneal signs present. No hepatosplenomegaly. No ab normal striae. EXTREMITIES: Nonpalpable radial pulse bilaterally. Femoral pulses are felt to be 2+. SKIN: No gross abnormalities. PERTINENT LABORATORY DATA: CK-MB of 15. Troponin 13, CO2 of 21, BUN 86, creatinine is 9.47, hemoglo bin 12.4 and platelet count of 199. EKG: Normal sinus rhythm, low voltage. No acute ST-T wave winter ges present. IMPRESSION: 1. Elevated troponin. 2. Hypertension. 3. End-stage renal disease. 4. Severe three-vessel coronary artery disease felt to be inoperable. 5. Ischemic cardiomyopathy. 6. Human immunodeficiency virus. RECOMMENDATIONS: Certainly, a complicated case. It is unknown why Ms. Veronica has developed profou nd hypotension. This may have place to demand on her current cardiac condition causing elevated trop onin. At this point, would recommend femoral line placement. I did discuss with the ER. We would r ecommend heparin therapy. Also, recommend increasing blood pressure above 100. It appears options a re limited. I did spend 40 minutes of critical care time reviewing Ms. Veronica's case and discussed the case wit h Dr. Ayesha Carter, Dr. Nicolas Barrett and assessing patient. Prognosis appears poor.
[2018-02-02] MEDS ORDERED: Heparin 5,000 UNITS/ML VIAL ONE (14:38)
[2018-02-02] MEDS ORDERED: Norepinephrine 8 MG/0.9% NS 250 ML ONE (15:41)
[2018-02-02 15:44] LABS: Troponin I 16.953 ng/mL (< 0.028)
[2018-02-02] MEDS ORDERED: Heparin 25,000 units/D5W 500 ML IVPB SCH (15:55)
[2018-02-02] MEDS ORDERED: Ondansetron HCl/PF 4 MG/2 ML Vial IVP PRN (15:55)
[2018-02-02] MEDS ORDERED: Heparin 10,000 UNITS/ 10 ML VIAL SLOW IVP SCH ×2 (15:55→16:30)
[2018-02-02] MEDS ORDERED: Dextrose 5% in Water 1,000 ML IV PRN (15:55)
[2018-02-02] MEDS ORDERED: Docusate 100 MG CAP PER TUBE PRN (15:55)
[2018-02-02] MEDS ORDERED: Aspirin 300 MG Suppository PR SCH (15:55)
[2018-02-02] MEDS ORDERED: Nitroglycerin 0.4 MG TAB (25 Tab Bottle) SL PRN (15:55)
[2018-02-02] MEDS ORDERED: Dextrose 50% Abboject 50 ML SYRINGE SLOW IVP PRN (15:55)
[2018-02-02] MEDS ORDERED: Sodium Chloride 0.9% 1,000 ML IV SCH (15:55)
[2018-02-02] MEDS ORDERED: Meropenem 500 MG in Sodium Chloride 0.9% 100 ML IVPB SCH (16:00)
[2018-02-02] MEDS ORDERED: Vancomycin HCl 1 GM in Premix Bag 1 BAG IVPB SCH ×2 (16:00→16:15)
[2018-02-02] MEDS ORDERED: Norepinephrine 8 MG/0.9% NS 250 ML IVPB SCH (16:00)
[2018-02-02] MEDS ORDERED: Vancomycin HCl 1.25 GM in Sodium Chloride 0.9% 250 ML 250 ML IVPB SCH (16:15)
[2018-02-02] MEDS ORDERED: Vancomycin Sliding Scale 1 EACH FS ONE (16:15)
[2018-02-02] MEDS ORDERED: Vancomycin HCl 500 MG in Sodium Chloride 0.9% 100 ML IVPB SCH (16:15)
[2018-02-02] MEDS ORDERED: HOLD VANCOMYCIN FOR LEVEL >20 FS SCH (16:15)
[2018-02-02] MEDS ORDERED: Vancomycin HCl 750 MG in Sodium Chloride 0.9% 250 ML 250 ML IVPB SCH (16:15)
[2018-02-02] MEDS ORDERED: Midodrine HCl 5 MG TAB PO SCH ×2 (16:30→21:00)
--- NOTE | 2018-02-02 16:40 | HP ---
REASON FOR ADMISSION: Acute myocardial infarction with inoperable coronary artery disease likely end-stage, hypotension, volume overload. HISTORY OF PRESENTING ILLNESS: Patient apparently passed out at her care home. She says she might have passed out for nearly an hour or so. When she woke up, everything was coming back to her. When she woke up EMS had arrived to the care home and transport was being arranged. Dr. Roy was consulted in the ER with elevated troponin, and patient apparently complained of chest pain at the care home. I have been trying to call [facility] at [phone] to get accurate sense of what prompted them to transfer patient, but the line is not going through, it has been ringing. The patient currently has no chest pain or palpitation. She responds well to questions. The patient states she does not want to be resuscitated. She knows she has been sick for a while. She has been in and out of hospice. Has some dry cough , but no expectoration. She does not recall having had any fever yesterday. PAST MEDICAL AND SURGICAL HISTORY: CHF with ejection fraction of around 40%-45% , ischemic cardiomyopathy, end-stage renal disease on hemodialysis, which she gets on Mondays, Wednesdays, Fridays, inoperable coronary artery disease, peripheral vascular disease, bilateral knee amputations, peripheral vascular disease, PEG tube, hysterectomy, diabetes, HIV status, hypotension. PERSONAL HISTORY: Does not abuse alcohol or drugs. No history of smoking. She is a resident of [facility] at present. FAMILY HISTORY: Multiple family members have history of coronary artery disease. CURRENT MEDICATIONS: The patient is on Abacavir 600 mg twice daily, vitamin C 500 mg daily, aspirin 81 mg daily, Lipitor 40 mg at bedtime, Coreg 3.125 mg daily, Colace 100 mg daily, Sustiva 600 mg at bedtime, ferrous sulfate 325 mg daily, fluoxetine 20 mg daily, folic acid 0.8 mg daily, Lasix 40 mg twice daily , DuoNebs q.i.d. p.r.n., Imdur 20 mg twice daily, lactulose 20 grams daily, Epivir 150 mg daily, Ditropan XL 5 mg daily, MiraLax 17 grams daily, Lyrica 75 mg twice daily, Seroquel 200 mg daily, Zantac 300 mg daily, Zoloft 50 mg daily, sevelamer 2.4 grams daily, trazodone 150 mg daily, and Ambien 5 mg at bedtime. ALLERGIES: Allergic to CODEINE, PENICILLIN, MORPHINE, SULFA. REVIEW OF SYSTEMS: The following complete review of systems was negative, unless otherwise mentioned in the HPI or below: Constitutional: Weight loss or gain, ability to conduct usual activities. Skin: Rash, itching. Eyes: Double vision, pain. ENT/Mouth: Nose bleeding, neck stiffness, pain, tenderness. Cardiovascular: Palpitations, dyspnea on exertion, orthopnea. Respiratory: Shortness of breath, wheezing, cough, hemoptysis, fever or night sweats. Gastrointestinal: Poor appetite, abdominal pain, heartburn, nausea, vomiting, constipation, or diarrhea. Genitourinary: Urgency, frequency, dysuria, nocturia. Musculoskeletal: Pain, swelling. Neurologic/Psychiatric: Anxiety, depression. Allergy/Immunologic: Skin rash, bleeding tendency. PHYSICAL EXAMINATION: GENERAL: The patient is a 52-year-old female, patient is not in any acute distress, but staff has not been able to get blood pressure reading on her. VITAL SIGNS: Pulse 110 per minute, respiratory rate 22 per minute, temperature 98.2 degrees Fahrenheit, saturating 100% on 3 liters nasal cannula. NECK: Supple, no elevated JVD. EYES: Extraocular muscles intact. Pupils are reacting to light. ORAL CAVITY: Mucous membranes are dry. No exudates or congestion. CARDIOVASCULAR SYSTEM: S1, S2 heard, S3 plus. RESPIRATORY SYSTEM: Air entry 1+ bilateral. Scattered rales plus. Bilateral rhonchi plus. ABDOMEN: Soft, bowel sounds heard. There is a PEG tube in place. No rigidity or guarding. EXTREMITIES: Patient has bilateral above knee amputations. Also has some dependent edema. No ulcerations or gangrene seen. CENTRAL NERVOUS SYSTEM: No gross focal deficits seen. Patient is lethargic, but responds well to questions. PSYCHIATRIC SYSTEM: No obvious hallucinations or delusions. LABORATORY DATA AND IMAGING DATA: White count of 10, hemoglobin and hematocrit 12 and 39, platelet count 199, MCV is 105 with 82% neutrophils. PT/INR 17 and 1.4, potassium 5.5. Serum bicarbonate 21, BUN 86, creatinine 9.4, and glucose 211. CK level was 354. CK-MB 15.5, troponin I is 13.9. Second set is 16.9, albumin is 3.3, lipase is 43. Chest x-ray done shows cardiomegaly with pulmonary vascular congestion. EKG done shows sinus tachycardia at 110 beats per minute. EKG is very low voltage. There are also signs of old anterolateral infarct. CLINICAL IMPRESSION AND PLAN: The patient will be admitted to ICU for acute MO with inoperable coronary artery disease. She is for medical management. Dr. Roy, data programmer, has already evaluated the patient in the ER and wants the patient to be on heparin drip. A dose of aspirin has been given in the ER. Patient currently has no blood pressure reading either due to severe peripheral vascular disease or patient has underlying shock. She was given 1 liter of fluid bolus in the ER and 2 more liters will be given stat now. After that, patient will be on 100 mL per hour. She will be on midodrine 5 mg 3 times daily and Levophed to keep a map of at least 50-60. I did speak to Dr. Yeung who knows the patient well from her end-stage renal disease. Patient normally runs her blood pressure in the low 100s and uses midodrine. She is also a vasculopath and has had prior amputations and her pulses are difficult to feel in both upper extremities which is not something new per Dr. Yeung. She has had a femoral line on the right side placed in the ER. Blood and urine cultures will be obtained and she will be empirically on meropenem and vancomycin based on renal dosing. She will also continue her on Lipitor, HIV medications including Sustiva, Epivir and Abacavir. I have spoken to Dr. Garcia for Pulmonary or Critical Care consultation. I did discuss her findings of critical condition with her , Mr. Lopez. He is aware of patient's very poor prognosis at present. She is a DO NOT RESUSCITATE and I have confirmed this with the patient who is oriented. For now, patient will be treated medically for acute MO and see if she makes a turnaround. We will also obtain a CD4 count. [facility]
[2018-02-02 16:48] LABS: Hemoglobin 11.7 g/dL (12.0-16.0); Platelet Count 195 thou/uL (130-400)
--- NOTE | 2018-02-02 17:34 | CON ---
DATE OF CONSULTATION: 02/02/2018 SERVICE: Pulmonary Medicine. REASON FOR CONSULTATION: ICU patient. HISTORY OF PRESENT ILLNESS: The patient is a 52-year-old -[place] female with past medical history significant for end-stage coronary artery disease. She has recurrent episodes of presenting to the hospital with chest discomfort, shortness of breath, and volume overload, this is refractory to outpatient medications. She is frequently coming back into the hospital for various reasons. Ultimately, she will be put on inotropic agents, which will promote increased cardiac output. She will then get diuresed gently to the point where she can be transitioned out of the hospital, but this happens again. She currently is saying that she is exhausted with his back and forth activity. At this point, she is no longer interested in further aggressive interventions that are designed to get her back to her previous state of health. On this occasion, the patient had a syncopal event in the nursing facility. When she then woke up, everything came back to her. EMS had already arrived at the Emergency Department and were in the process of transitioning to the emergency department. PAST MEDICAL HISTORY: 1. Chronic systolic heart failure. 2. End-stage renal disease, on hemodialysis. 3. Coronary artery disease, not operable. 4. Peripheral vascular disease with multiple amputations. 5. PEG tube placement. 6. Type 2 diabetes mellitus. 7. Human immunodeficiency virus. 8. Low blood pressures. PAST SURGICAL HISTORY: 1. Dialysis access. 2. Right below-knee amputation. 3. Left above knee amputation. 4. Hysterectomy. 5. PEG tube placement. FAMILY HISTORY: Noncontributory. SOCIAL HISTORY: She does not currently use alcohol or illicit drugs. She has no history of smoking. She is a resident of [facility]. She has no exposure to chemicals, dust, asbestos or tuberculosis. ALLERGIES: CODEINE, PENICILLIN, MORPHINE, SULFA. MEDICATIONS: List of her inpatient medications were reviewed. No updates were made at this time. REVIEW OF SYSTEMS: General, head, ears, eyes, nose, throat, cardiovascular, respiratory, GI, , musculoskeletal, neurologic and skin is negative except as mentioned in the HPI. PHYSICAL EXAMINATION: VITAL SIGNS: Afebrile, pulse 98, respirations 15, saturation 100% on 3 liters nasal cannula. Blood pressure 85/53. HEENT: Normocephalic, atraumatic. Sclerae are white, conjunctivae pink. Oral and nasal mucosa is moist without lesions. GENERAL: The patient is awake and alert. She is in no apparent distress. LUNGS: Decent air entry. There are depending crackles present. HEART: Tachycardic. Regular. ABDOMEN: Soft, nontender, nondistended. Bowel sounds are positive. MUSCULOSKELETAL: No cyanosis or clubbing. There is no pitting in the bilateral lower extremities. NEUROLOGIC: Grossly nonfocal. SKIN: She has decubitus ulcers which are stage 3, which were present on admission. LABORATORY DATA: WBC 10.5, hemoglobin 11.7 and roughly stable. Platelets 199, 000 and stable. INR 1.4. Creatinine 9.47, BUN 86. Anion gap 26, bicarbonate 21. Potassium 5.5. Alkaline phosphatase 214, AST and ALT are at the upper limits of normal. CK 354. Troponin 16.9 and up trending. Lipase 43. IMAGING: Chest x-ray demonstrates cardiomegaly and pulmonary vascular congestion are similar compared to prior. There is a fairly sharp juan. Interstitial prominence is likely accentuated by slightly low lung volumes, though there is clearly fluid in the fissure on the right. ASSESSMENT: 1. Acute hypoxic respiratory failure, resolving. 2. Non-ST elevation myocardial infarction. 3. Coronary artery disease, end-stage. 4. Peripheral vascular disease, severe. 5. End-stage renal disease. 6. Hypotension. 7. Human immunodeficiency virus. PLAN: We will initiate the patient on heparin therapy. Pulmonary Critical Care will continue to follow while she remains in this location. Ultimately, she is a DNI/DNR. As such, no extraordinarily aggressive interventions will be performed. She will be initiated on medications to help boost up her blood pressure though I do think this is a primary cardiac event. We will monitor for any signs of infection. Troponins are being trended. Palliative Care consultation will be placed as the patient has basically said that she would not like any aggressive maneuvers moving forward and is tired of coming back and forth from the hospital to her nursing facility. She has been on and off hospice on multiple occasions and I do think that she is aware of the implications of the choices that she makes at this point. Pulmonary Critical Care will continue to follow while she remains in this location, but Dr. Cardoza will assume coverage in the morning. 70 minutes have been devoted to this patient in various activities. I personally reviewed all imaging studies and laboratory data noted within this document. For fifty percent of this time, I was interacting with the patient at the bedside or coordinating care with the care team. For the remainder of the time I was immediately available to the patient in the hospital unit. [facility]
[2018-02-02] MEDS ORDERED: Meropenem 500 MG, Admixture Fee 1 EACH in Sterile Water 10 ML SLOW IVP SCH (18:00)
[2018-02-02] MEDS: Meropenem 500 MG, Admixture Fee 1 EACH in Sterile Water 10 ML SLOW IVP SCH (19:27)
--- NOTE | 2018-02-02 20:34 | CON ---
DATE OF CONSULTATION: 02/02/2018 CONSULTING PHYSICIAN: Anjana Solis M.D. REQUESTING PHYSICIAN: Rhys Liao M.D. REASON FOR CONSULTATION: Maintenance hemodialysis. IMPRESSION: 1. End-stage renal disease, hemodialysis dependent, due for dialysis today. 2. Hyperkalemia in the context of end-stage renal disease. 3. Labile hemodynamics. 4. Immunosuppressed due to human immunodeficiency virus. PLAN: 1. The patient to undergo a short run of dialysis today with ultrafiltration as tolerated by hemodyn amics. 2. Discontinue n.p.o. status and start this patient on diet. 3. We will resume midodrine on this patient. 4. The patient has had very labile hemodynamics for quite some time now and I do believe this is con tributing to the elevated troponin in addition to defer that this patient has an inoperable coronary artery disease. HISTORY OF PRESENT ILLNESS: History is that of a 52-year-old female patient with end-stage renal dis ease on Friday, Friday and Friday dialysis, who has had labile hemodynamics making it very difficu lt to get a blood pressure from this patient as well as pulse oximetry given significant vasculopathy in this patient for quite some time now. The patient, however, continued to function with this unde tectable hemodynamics. The patient presented here with similar symptoms that she has presented in past, which include shortness of breath, chest discomfort and decision for renal replacement therap y was taken given the elevated potassium and in fact patient is due for dialysis today and also compl ained of shortness of breath. PAST MEDICAL HISTORY: Significant for congestive heart failure, inoperable coronary artery disease, end-stage renal disease and retroviral infection. MEDICATIONS: Reviewed and as documented on [facility]. FAMILY HISTORY: Significant for cardiac disease. SOCIAL HISTORY: The patient is a [place] resident. No alcohol, no tobacco, no illicit drug use . ALLERGIES: CODEINE, PENICILLIN, MORPHINE and SULFA. PHYSICAL EXAMINATION: GENERAL: The patient was found to be alert and oriented with undetectable hemodynamics. HEENT: Unremarkable. CARDIOVASCULAR SYSTEM: First and second heart sounds were heard. RESPIRATORY SYSTEM: Reveals some rales. DIGESTIVE SYSTEM: Revealed an obese abdomen. EXTREMITIES: No peripheral edema. SKIN: No new gross rash. LYMPHATICS: No peripheral lymphadenopathy. SUMMARY: A 52-year-old female patient with end-stage renal disease who has had issues with labile he modynamics for worrisome time. In fact, I will recommend discontinuation of pressors and continue th is patient on midodrine. Thank you for this consultation. Further management will be dependent on the clinical course.
[2018-02-02] MEDS ORDERED: ABACAVIR SULFATE PER TUBE SCH (21:00)
[2018-02-02] MEDS: Fentanyl 100 MCG/2 ML VIAL SLOW IVP PRN (21:10)
[2018-02-02] MEDS: Famotidine 20 MG TAB PO SCH (21:15)
[2018-02-02] MEDS: Atorvastatin Calcium 40 MG TAB PER TUBE SCH (21:15)
[2018-02-02] MEDS: ABACAVIR SULFATE PER TUBE SCH (21:16)
[2018-02-02] MEDS ORDERED: Fentanyl 100 MCG/2 ML VIAL SLOW IVP PRN (21:37)
[2018-02-02] MEDS: Midodrine HCl 5 MG TAB PO SCH (21:47)
[2018-02-02] MEDS: HumaLOG 300 UNITS/3 ML VIAL SC PRN (22:57)
[2018-02-02 23:49] LABS: Hep B Surf Ag Non-Reactive S/CO (NonReactive)
[2018-02-03] MEDS: Meropenem 500 MG, Admixture Fee 1 EACH in Sterile Water 10 ML SLOW IVP SCH (05:19)
[2018-02-03] MEDS: HumaLOG 300 UNITS/3 ML VIAL SC PRN ×3 (05:19→20:46)
[2018-02-03 05:23] LABS: #Eosinphils 0.2 thou/uL (0.0-0.7); #Lymphocytes 1.1 thou/uL (1.20-3.40); #Monocytes 0.9 thou/uL (0.11-0.59); #Neutrophils 6.6 thou/uL (1.40-6.50); %Basophils 0.5 % (0.0-1.0); %Eosinophils 2.4 % (0.0-10.0); %Lymphocytes 12.7 % (21.0-51.0); %Monocytes 9.6 % (0.0-10.0); %Neutrophils 74.7 % (42.0-75.0); Hemoglobin 10.8 g/dL (12.0-16.0); Mean Corpuscular HGB CONC 32.8 g/dL (32.0-36.0); Mean Corpuscular Hemoglobin 33.4 pg (27.0-31.0); Mean Platelet Volume 8.7 fL (7.4-10.4); Platelet Count 193 thou/uL (130-400); RBC Distribution Width 13.2 % (11.5-14.5); Red Blood Cell (RBC) Count 3.24 mill/uL (4.20-5.40); White Blood Cell (WBC) Count 8.9 thou/uL (4.8-10.8)
[2018-02-03 05:46] LABS: Anion Gap 22 mmol/L (10-20); BUN (Urea Nitrogen) 79 mg/dL (9.8-20.1); Calc. Creatinine Clearance 10 mL/min (70-130); Calcium 8.2 mg/dL (7.8-10.44); Carbon Dioxide 22 mmol/L (22-29); Cardiac Risk 2.7 (Less than 4.5); Chloride 100 mmol/L (98-107); Cholesterol 102 mg/dl (< 200 Desired); Estimated GFR-MDRD 6; Glucose 246 mg/dL (70-105); HDL Cholesterol 38 mg/dL (>60 Neg Risk); LDL Cholesterol, Calculated 46 mg/dL; Potassium 5.1 mmol/L (3.5-5.1); Sodium 139 mmol/L (136-145); Triglycerides 92 mg/dL (Less than 150)
[2018-02-03 05:56] LABS: Critical Call Chem Troponin I RESULT DECREASING
--- NOTE | 2018-02-03 08:13 | PRG ---
DATE OF SERVICE: 02/03/2018 Ms. Veronica is talking. She says she feels a little better. PHYSICAL EXAMINATION: VITAL SIGNS: Temperature is 97.7, pulse 103, blood pressure has largely been undetectable through no ninvasive means overnight. Total intake for 24 hours 448, output 2000 by dialysis. HEENT: Unremarkable. NECK: No JVD. LUNGS: Clear without wheezing or rhonchi. CARDIAC: S1, S2 regular. ABDOMEN: Soft. EXTREMITIES: She has bilateral above the knee amputations. She has a very weak radial pulse in both arms. Chest x-ray from yesterday showed no acute findings. LABORATORY DATA: White blood cell count 8.9, hemoglobin 10, hematocrit 33, platelet count 193. PTT 70. Sodium 139, potassium 5.1, chloride 100, CO2 23, BUN 79, creatinine 8.9, glucose 246. Troponin 12.1. ASSESSMENT: 1. Myocardial infarction. 2. Severe hypotension which may be cardiogenic in nature. 3. Human immunodeficiency virus - end-stage. 4. End-stage renal disease. PLAN: 1. Clearly her blood pressure is better than what we are picking up on the monitor. She has end-sta ge multi-organ disease that we are treating conservatively. She is DNR/DNI. 2. Continuing empiric antibiotics and Levophed for the time being. She will remain in the ICU. Her prognosis is extremely poor.
[2018-02-03] MEDS: Midodrine HCl 5 MG TAB PO SCH ×2 (08:32→20:42)
[2018-02-03] MEDS: FLUoxetine HCl 20 MG CAP PER TUBE SCH (08:33)
[2018-02-03] MEDS: Sevelamer Carbonate 800 MG TAB PO SCH (08:33)
[2018-02-03] MEDS: Aspirin 325 MG TAB PO SCH (08:33)
[2018-02-03] MEDS: Folic Acid 1 MG TAB PO SCH (08:33)
[2018-02-03] MEDS: ABACAVIR SULFATE PER TUBE SCH ×2 (08:33→20:42)
[2018-02-03] MEDS ORDERED: FLU VACC QS2017-18 36 mo. & older 0.5 ML SYRINGE IM ONE (09:00)
[2018-02-03] MEDS ORDERED: Prevnar 13-Val Conj/PF 0.5 ML SYRINGE IM ONE (09:00)
--- NOTE | 2018-02-03 10:01 | PRG ---
DATE OF SERVICE: 02/03/2018 The patient seen and examined with no new compliant. By discussing with this patient, the patient se ems to be a little bit short winded. PHYSICAL EXAMINATION: VITAL SIGNS: Afebrile with temperature 97.5, pulse 102, respiratory rate 32, O2 sat 100% on 2 liters . HEENT: Unremarkable. CARDIOVASCULAR: First and second heart sounds, tachycardic. RESPIRATORY: Reveals some crackles. DIGESTIVE: Revealed an obese abdomen. EXTREMITIES: No peripheral edema. SKIN: No new gross rash. LYMPHATICS: No peripheral lymphadenopathy. IMPRESSION: 1. End-stage renal disease, hemodialysis dependent. Had short dialysis yesterday. 2. Labile hemodynamics, which does not correlate with the clinical presentation of this patient. Th erefore, we will completely disregard placing so much emphasis on this patient's vital signs includin g blood pressure. PLAN: 1. The patient to undergo a short run of dialysis today with emphasis only on ultrafiltration. 2. We will recommend weaning off the pressors on this patient. Patient had this issue of labile hem odynamics for quite some time. Patient mentating okay. Mental status intact, so I do not believe th at this patient's vital signs by the way of readings on a regular blood pressure cuff. The patient h as been placed a Midodrine and we will continue on this medication. 3. After weaning off and discontinuing pressors the patient can be transitioned out of ICU. 4. Further management to be dependent on the clinical course.
--- NOTE | 2018-02-03 11:49 | PDOC.PN ---
- Subjective Encounter Start Date: 02/03/18 Encounter Start Time: 11:20 Subjective: awake, conversing well -: her daughter is at bedside -: no chest pain or dizzy feeling - Objective Resuscitation Status: Resuscitation Status DNR:Do Not Resuscitate MAR Reviewed: Yes Vital Signs & Weight: Vital Signs (12 hours) Temp Pulse Resp Pulse Ox 02/03/18 10:52 103 H 35 H 98 02/03/18 08:00 97.5 F L 102 H 32 H 100 02/03/18 06:58 102 H 32 H 100 02/03/18 04:00 97.7 F 02/03/18 00:00 98.5 F Weight Weight 186 lb 15.232 oz Most Recent Monitor Data Heart Rate from ECG 98 NIBP 48/38 NIBP BP-Mean 30 Respiration from ECG 18 SpO2 100 I&O: 02/02/18 02/03/18 02/04/18 06:59 06:59 06:59 Intake Total 448 200 Output Total 0 Balance 448 200 Result Diagrams: 02/03/18 05:10 02/03/18 05:10 Additional Labs: Accuchecks 02/03/18 02/03/18 02/02/18 11:16 05:16 22:01 POC Glucose 180 H 228 H 219 H Phys Exam - Physical Examination HEENT: PERRLA, moist MMs Neck: no JVD, supple Respiratory: no wheezing, no rales Cardiovascular: RRR, no significant murmur Gastrointestinal: soft, no distention, positive bowel sounds right bka, left aka Neurological: non-focal, moves all 4 limbs Dx/Plan (1) Hypotension Status: Acute (2) Acute CO Code(s): I21.9 - ACUTE MYOCARDIAL INFARCTION, UNSPECIFIED Status: Acute Qualifiers: Myocardial infarction type: non-ST elevation myocardial infarction Qualified Code(s): I21.4 - Non-ST elevation (NSTEMI) myocardial infarction (3) Sepsis Code(s): A41.9 - SEPSIS, UNSPECIFIED ORGANISM Status: Suspected Qualifiers: Sepsis type: sepsis due to unspecified organism Qualified Code(s): A41.9 - Sepsis, unspecified organism (4) Amputation of both lower extremities Code(s): S88.911A - COMPLETE TRAUMATIC AMPUTATION OF R LOW LEG, LEVEL UNSP, INIT ; S88.912A - COMPLETE TRAUMATIC AMPUTATION OF L LOW LEG, LEVEL UNSP, INIT Status: Chronic Comment: right bka, left aka (5) DM2 (diabetes mellitus, type 2) Status: Chronic Qualifiers: Diabetes mellitus halfway insulin use: with halfway use Diabetes mellitus complication status: with kidney complications Diabetes mellitus complication detail: with chronic kidney disease Chronic kidney disease stage : on chronic dialysis Qualified Code(s): E11.22 - Type 2 diabetes mellitus with diabetic chronic kidney disease; N18.6 - End stage renal disease; N18.6 - End stage renal disease; N18.6 - End stage renal disease; N18.6 - End stage renal disease; Z79.4 - care home (current) use of insulin; Z79.4 - care home ( current) use of insulin; Z79.4 - care home (current) use of insulin; Z79.4 - care home (current) use of insulin; Z99.2 - Dependence on renal dialysis; Z99.2 - Dependence on renal dialysis; Z99.2 - Dependence on renal dialysis; Z99.2 - Dependence on renal dialysis (6) ESRD (end stage renal disease) Code(s): N18.6 - END STAGE RENAL DISEASE Status: Chronic Comment: on HD per Dr Yeung (7) HIV (human immunodeficiency virus infection) Status: Chronic Comment: Followed by Dr Feliz (8) Moderate protein-calorie malnutrition Code(s): E44.0 - MODERATE PROTEIN-CALORIE MALNUTRITION Status: Chronic (9) Oropharyngeal dysphagia Code(s): R13.12 - DYSPHAGIA, OROPHARYNGEAL PHASE Status: Chronic Comment: has peg tube - Plan has multiple organ failures with poor prognosis -: is on levophed taper -: trial of HD today (had vtac yesterday with initiation of HD) -: on heparin drip for ac CO (inoperable and for med mgmt) -: d/w pt and daughter at bedside, on empiric meropenem,vanc * . Review of Systems - Medications/Allergies Allergies/Adverse Reactions: Allergies Allergy/AdvReac Type Severity Reaction Status Date / Time codeine Allergy Unknown Verified 08/27/17 06:41 Penicillins Allergy Unknown Verified 08/27/17 06:41 morphine Allergy Verified 08/27/17 06:41 Sulfa (Sulfonamide Allergy Verified 08/27/17 06:41 Antibiotics) Medications: Current Medications Abacavir Sulfate (Ziagen 20mg/Ml Oral Solution) 300 mg PER TUBE BID [facility] Last Admin: 02/03/18 08:33 Dose: 300 mg Acetaminophen (Tylenol) 650 mg PO Q4H PRN PRN Reason: Headache/Fever or Pain Albuterol/Ipratropium (Duoneb) 3 ml NEB QID-RT [facility] Last Admin: 02/03/18 10:52 Dose: 3 ml Aspirin (Aspirin) 325 mg PO DAILY [facility] Last Admin: 02/03/18 08:33 Dose: 325 mg Atorvastatin Calcium (Lipitor) 40 mg PER TUBE HS [facility] Last Admin: 02/02/18 21:15 Dose: 40 mg Dextrose/Water (Dextrose 50%) 25 gm SLOW IVP PRN PRN PRN Reason: Hypoglycemia Docusate Sodium (Colace) 100 mg PER TUBE DAILY PRN PRN Reason: Constipation Efavirenz (Sustiva) 600 mg PER TUBE 2100 [facility] Last Admin: 02/02/18 21:16 Dose: 600 mg Famotidine (Pepcid) 20 mg PO 2100 [facility] Last Admin: 02/02/18 21:15 Dose: 20 mg Fentanyl (Sublimaze) 50 mcg SLOW IVP Q2H PRN PRN Reason: Pain Last Admin: 02/02/18 21:10 Dose: 50 mcg Fentanyl (Sublimaze) 50 mcg SLOW IVP Q30MIN PRN PRN Reason: Chest Pain Last Admin: 02/02/18 21:43 Dose: 50 mcg Fluoxetine HCl (Prozac) 20 mg PER TUBE DAILY [facility] Last Admin: 02/03/18 08:33 Dose: 20 mg Folic Acid (Folvite) 1 mg PO DAILY [facility] Last Admin: 02/03/18 08:33 Dose: 1 mg Glucagon (Glucagon) 1 mg IM PRN PRN PRN Reason: Hypoglycemia Heparin Sodium (Porcine) (Heparin 1,000 Units/Ml (10 Ml)) 0 units SLOW IVP ASDIR RAAD PRN Reason: Protocol Dextrose/Water (D5w) 1,000 mls @ 0 mls/hr IV .Q0M PRN; As Directed PRN Reason: Hypoglycemia Heparin Sodium/Dextrose (Heparin 25,000 Units/D5w 500 Ml) 500 mls @ 0 mls/hr IVPB INF RAAD; Per Protocol PRN Reason: Protocol Last Admin: 02/02/18 19:19 Dose: 500 mls Norepinephrine Bitartrate (Levophed) 250 mls @ 0 mls/hr IVPB INF RAAD; Titrate PRN Reason: Protocol Last Admin: 02/03/18 03:29 Dose: 250 mls Vancomycin HCl 1.25 gm/ Sodium (Chloride) 250 mls @ 166.667 mls/hr IVPB WILLCALL [facility] Vancomycin HCl 1 gm/ Device 200 mls @ 200 mls/hr IVPB WILLCALL [facility] Vancomycin HCl 750 mg/ Sodium (Chloride) 250 mls @ 250 mls/hr IVPB WILLCALL [facility] Vancomycin HCl 500 mg/ Sodium (Chloride) 100 mls @ 100 mls/hr IVPB WILLCALL [facility] Meropenem 500 mg/Miscellaneous Medication 1 each/ Sterile Water 10 mls @ 120 mls/hr SLOW IVP 0600,1800 [facility] Last Admin: 02/03/18 05:19 Dose: 10 mls Insulin Human Lispro (Humalog) 0 units SC .MILD SLIDING SCALE PRN PRN Reason: Mild Correctional Scale Last Admin: 02/03/18 11:19 Dose: 2 unit Insulin Human Lispro (Humalog) 0 units SC .BEDTIME SLIDING SC PRN PRN Reason: Bedtime Correctional Scale Last Admin: 02/02/18 22:57 Dose: 2 unit Lamivudine (Epivir) 150 mg PER TUBE DAILY [facility] Last Admin: 02/03/18 10:04 Dose: 150 mg Midodrine (Proamatine) 10 mg PO BID [facility] Last Admin: 02/03/18 08:32 Dose: 10 mg Miscellaneous Medication (Pharmacy To Dose) 1 each IVPB ONE PRN PRN Reason: DOSING Stop: 03/04/18 16:11 Nitroglycerin (Nitrostat) 0.4 mg SL Q5MIN PRN PRN Reason: Chest Pain Hold Vancomycin For (Level >20) 0 each FS .AT DIALYSIS [facility] Ondansetron HCl (Zofran) 4 mg IVP Q6H PRN PRN Reason: Nausea/Vomiting Sevelamer Carbonate (Renvela) 2,400 mg PO DAILY [facility] Last Admin: 02/03/18 08:33 Dose: 2,400 mg Sodium Chloride (Flush - Normal Saline) 10 ml IVF PRN PRN PRN Reason: Saline Flush
--- NOTE | 2018-02-03 14:41 | PQF ---
CLINICAL DOCUMENTATION IMPROVEMENT CLARIFICATION FORM: ICD-10 Updated PLEASE DO AN ADDENDUM TO THE PROGRESS NOTE WITH ANY DOCUMENTATION UPDATES OR ADDITIONS AND CARRY THROUGH TO DC SUMMARY. THANK YOU. DATE: 02/03/18 ATTN: DR. RAHMAN Please exercise your independent, professional judgment in responding to the clarification form. Clinical indicators are provided on the bottom of this form for your review Please check appropriate box(s) to clarify if the following diagnosis has been ruled in or ruled out: "SEPSIS" [ ] Ruled in diagnosis [ ] Continue to treat [ ] Resolved [ ] Ruled out diagnosis [ ] Cannot rule out diagnosis [ ] Other diagnosis [ x ] Unable to determine Wait for cultures, pt is a chronic vasculopath and cant get BP readings. In addition, please specify: Present on Admission (POA): [ ] Yes [ ] No [ ] Unable to determine For continuity of documentation, please document condition throughout progress notes and discharge summary. Thank You. CLINICAL INDICATORS - SIGNS / SYMPTOMS / LABS PROGRESS NOTE 02/03: "SEPSIS" PULSE 111 RR 35 BP 42/28 RISKS: HIV MULTIPLE COMORBIDITIES TREATMENT: IV MEROPENEM (02/02-PRESENT) LEVOPHED (02/02-PRESENT) BLOOD CULTURES CRITICAL CARE MONITORING [employer] Winform Viewer(This form is maintained as a part of the permanent medical record) 2014 [employer]. All Rights Reserved [email or web address] Office: [phone] [place]
[2018-02-03] MEDS: Fentanyl 100 MCG/2 ML VIAL SLOW IVP PRN ×2 (15:43→19:31)
[2018-02-03] MEDS: Meropenem 500 MG in Sodium Chloride 0.9% 100 ML IVPB SCH (18:15)
[2018-02-03] MEDS: Atorvastatin Calcium 40 MG TAB PER TUBE SCH (20:41)
[2018-02-03] MEDS: Famotidine 20 MG TAB PO SCH (20:41)
[2018-02-04] MEDS ORDERED: Zolpidem Tartrate 5 MG TAB PO SCH (01:00)
[2018-02-04] MEDS: HumaLOG 300 UNITS/3 ML VIAL SC PRN ×2 (05:36→16:06)
[2018-02-04] MEDS: Meropenem 500 MG in Sodium Chloride 0.9% 100 ML IVPB SCH ×2 (05:47→18:28)
[2018-02-04 06:06] LABS: #Eosinphils 0.4 thou/uL (0.0-0.7); #Lymphocytes 1.1 thou/uL (1.20-3.40); #Monocytes 0.7 thou/uL (0.11-0.59); #Neutrophils 6.1 thou/uL (1.40-6.50); %Basophils 0.4 % (0.0-1.0); %Eosinophils 4.5 % (0.0-10.0); %Lymphocytes 12.9 % (21.0-51.0); %Monocytes 8.8 % (0.0-10.0); %Neutrophils 73.4 % (42.0-75.0); Hemoglobin 10.2 g/dL (12.0-16.0); Mean Corpuscular HGB CONC 32.3 g/dL (32.0-36.0); Mean Corpuscular Hemoglobin 33.5 pg (27.0-31.0); Mean Platelet Volume 9.6 fL (7.4-10.4); Platelet Count 162 thou/uL (130-400); RBC Distribution Width 13.2 % (11.5-14.5); Red Blood Cell (RBC) Count 3.03 mill/uL (4.20-5.40); White Blood Cell (WBC) Count 8.3 thou/uL (4.8-10.8)
[2018-02-04 06:19] LABS: Anion Gap 22 mmol/L (10-20); BUN (Urea Nitrogen) 70 mg/dL (9.8-20.1); Calc. Creatinine Clearance 11 mL/min (70-130); Calcium 8.1 mg/dL (7.8-10.44); Carbon Dioxide 24 mmol/L (22-29); Chloride 97 mmol/L (98-107); Estimated GFR-MDRD 6; Glucose 150 mg/dL (70-105); Potassium 5.2 mmol/L (3.5-5.1); Sodium 138 mmol/L (136-145)
--- NOTE | 2018-02-04 07:54 | PRG ---
DATE OF SERVICE: 02/04/2018 Ms. Veronica is in good spirits. Her Levophed has been turned off. Her blood pressure is still almo st impossible to measure accurately. PHYSICAL EXAMINATION: VITAL SIGNS: Temperature 98.0, pulse 90, O2 sat 98%. HEENT: Unremarkable. NECK: No JVD. LUNGS: Clear without wheezing or rhonchi. CARDIAC: S1, S2 regular. LABORATORY DATA: White blood cell count 8.3, hematocrit 31.4, platelet count 162, sodium 138, potass ium 5.2, chloride 97, CO2 24, BUN 70, creatinine 8.4, glucose 150. ASSESSMENT: 1. Myocardial infarction. 2. Human immunodeficiency virus. 3. End-stage renal disease. PLAN: 1. She can be transferred out of the ICU. We need to determine how long she needs to be on the hepa rin drip. I doubt Cardiology is going to be able to intervene. 2. Would consider consolidating antibiotics.
[2018-02-04] MEDS: Acetaminophen 325 MG TAB PO PRN (09:06)
[2018-02-04] MEDS: Midodrine HCl 5 MG TAB PO SCH ×2 (09:06→20:49)
[2018-02-04] MEDS: ABACAVIR SULFATE PER TUBE SCH ×2 (09:06→20:51)
[2018-02-04] MEDS: Folic Acid 1 MG TAB PO SCH (09:07)
[2018-02-04] MEDS: Aspirin 325 MG TAB PO SCH (09:07)
[2018-02-04] MEDS: FLUoxetine HCl 20 MG CAP PER TUBE SCH (09:07)
[2018-02-04] MEDS: Sevelamer Carbonate 800 MG TAB PO SCH (09:07)
[2018-02-04 09:08] LABS: Vancomycin, Random 12.5 ug/mL (See Comment)
[2018-02-04] MEDS: Heparin 5,000 UNITS/ML VIAL SC SCH ×2 (09:24→20:50)
--- NOTE | 2018-02-04 15:38 | PRG ---
DATE OF SERVICE: 02/04/2018 SUBJECTIVE: The patient is seen and examined today and seems to be feeling better. Vital signs did reveal labile blood pressure that it is very difficult to detect with blood pressure cuff. Otherwise , the patient seems to be doing okay. PHYSICAL EXAMINATION: HEENT: Examination is unremarkable. CARDIOVASCULAR SYSTEM: First and second heart sounds were heard. RESPIRATORY SYSTEM: Clear to auscultation. DIGESTIVE SYSTEM: Revealed a benign abdomen with positive bowel sounds. EXTREMITIES: No peripheral edema. SKIN: No new gross rash. LYMPHATICS SYSTEM: No peripheral lymphadenopathy. IMPRESSION: 1. End-stage renal disease on hemodialysis. 2. Labile hemodynamics query cause. 3. Advanced retroviral infection. PLAN: 1. Patient to undergo hemodialysis today with ultrafiltration as tolerated. 2. Patient can be transitioned out of the ICU. 3. Would continue with treatment.
--- NOTE | 2018-02-04 19:27 | PDOC.PN ---
- Subjective Encounter Start Date: 02/04/18 Encounter Start Time: 15:00 Subjective: nsg notes rev, dulce ovn, no new c/o from patient - Objective Resuscitation Status: Resuscitation Status DNR:Do Not Resuscitate Vital Signs & Weight: Vital Signs (12 hours) Temp Pulse Resp 02/04/18 16:00 98.6 F 02/04/18 14:11 92 22 H 02/04/18 12:00 97.7 F 02/04/18 11:12 100 28 H 02/04/18 07:56 98.1 F 97 22 H Weight Admit Weight 186 lb Weight 186 lb 4.65 oz Most Recent Monitor Data Heart Rate from ECG 92 NIBP 37/14 NIBP BP-Mean 48 Respiration from ECG 16 SpO2 100 I&O: 02/03/18 02/04/18 02/05/18 06:59 06:59 06:59 Intake Total 448 1058 318 Output Total 0 Balance 448 1058 318 Result Diagrams: 02/04/18 05:40 02/04/18 05:40 Additional Labs: Accuchecks 02/04/18 02/04/18 02/04/18 16:06 11:13 07:22 POC Glucose 174 H 143 H 122 H 02/04/18 02/03/18 05:32 20:46 POC Glucose 154 H 228 H Phys Exam - Physical Examination Constitutional: NAD HEENT: PERRLA, sclera anicteric Respiratory: no wheezing, no rales, no rhonchi, clear to auscultation bilateral Cardiovascular: RRR, no significant murmur, no rub Gastrointestinal: soft, no distention, positive bowel sounds Psychiatric: normal affect, A&O x 3 Dx/Plan - Plan * 52F hx CAD, ESRD, HIV who presented after passing out * * hypotension * multifactorial * difficult to obtain SBP, titration of levophed related to mental status and clinical assessment * currently off levophed * t/c transition to floor * apprec pulm crit care c/s ESRD * see above * apprec nephology c/s * started HD - initial had some nonsustained VT, continue close monitoring * is M/W/F CAD * on heparin gtt during this hospitalization * s/p heparin gtt * continue to monitor for hemodynamic stability diet * continued aspiration risk * will c/s speech * as tolerated activity PT dvt ppx Review of Systems - Medications/Allergies Allergies/Adverse Reactions: Allergies Allergy/AdvReac Type Severity Reaction Status Date / Time codeine Allergy Unknown Verified 08/27/17 06:41 Penicillins Allergy Unknown Verified 08/27/17 06:41 morphine Allergy Verified 08/27/17 06:41 Sulfa (Sulfonamide Allergy Verified 08/27/17 06:41 Antibiotics) Medications: Current Medications Abacavir Sulfate (Ziagen 20mg/Ml Oral Solution) 300 mg PER TUBE BID [facility] Last Admin: 02/05/18 09:14 Dose: 300 mg Acetaminophen (Tylenol) 650 mg PO Q4H PRN PRN Reason: Headache/Fever or Pain Last Admin: 02/05/18 15:36 Dose: 650 mg Albuterol/Ipratropium (Duoneb) 3 ml NEB QID-RT [facility] Last Admin: 02/05/18 14:47 Dose: 3 ml Aspirin (Aspirin) 325 mg PO DAILY [facility] Last Admin: 02/05/18 09:00 Dose: 325 mg Atorvastatin Calcium (Lipitor) 40 mg PER TUBE HS [facility] Last Admin: 02/04/18 20:53 Dose: 40 mg Dextrose/Water (Dextrose 50%) 25 gm SLOW IVP PRN PRN PRN Reason: Hypoglycemia Docusate Sodium (Colace) 100 mg PER TUBE DAILY PRN PRN Reason: Constipation Efavirenz (Sustiva) 600 mg PER TUBE 2100 [facility] Last Admin: 02/04/18 20:50 Dose: 600 mg Famotidine (Pepcid) 20 mg PO 2100 [facility] Last Admin: 02/04/18 20:49 Dose: 20 mg Fluoxetine HCl (Prozac) 20 mg PER TUBE DAILY [facility] Last Admin: 02/05/18 09:14 Dose: 20 mg Folic Acid (Folvite) 1 mg PO DAILY [facility] Last Admin: 02/05/18 09:14 Dose: 1 mg Glucagon (Glucagon) 1 mg IM PRN PRN PRN Reason: Hypoglycemia Heparin Sodium (Porcine) (Heparin) 5,000 units SC BID [facility] Last Admin: 02/05/18 09:15 Dose: Not Given Dextrose/Water (D5w) 1,000 mls @ 0 mls/hr IV .Q0M PRN; As Directed PRN Reason: Hypoglycemia Meropenem 500 mg/ Sodium (Chloride) 100 mls @ 200 mls/hr IVPB 0600,1800 [facility] Last Admin: 02/05/18 05:48 Dose: 100 mls Insulin Human Lispro (Humalog) 0 units SC .MILD SLIDING SCALE PRN PRN Reason: Mild Correctional Scale Last Admin: 02/04/18 16:06 Dose: 2 unit Insulin Human Lispro (Humalog) 0 units SC .BEDTIME SLIDING SC PRN PRN Reason: Bedtime Correctional Scale Last Admin: 02/03/18 20:46 Dose: 2 unit Lamivudine (Epivir) 150 mg PER TUBE DAILY [facility] Last Admin: 02/05/18 09:15 Dose: 150 mg Midodrine (Proamatine) 10 mg PO BID [facility] Last Admin: 02/05/18 09:15 Dose: 10 mg Nitroglycerin (Nitrostat) 0.4 mg SL Q5MIN PRN PRN Reason: Chest Pain Ondansetron HCl (Zofran) 4 mg IVP Q6H PRN PRN Reason: Nausea/Vomiting Last Admin: 02/04/18 19:50 Dose: 4 mg Sevelamer Carbonate (Renvela) 2,400 mg PO DAILY [facility] Last Admin: 02/05/18 09:14 Dose: 2,400 mg Sodium Chloride (Flush - Normal Saline) 10 ml IVF PRN PRN PRN Reason: Saline Flush Last Admin: 02/04/18 09:09 Dose: 10 ml Tramadol HCl (Ultram) 50 mg PER TUBE Q8H PRN PRN Reason: Pain
[2018-02-04] MEDS: Famotidine 20 MG TAB PO SCH (20:49)
[2018-02-04] MEDS: Atorvastatin Calcium 40 MG TAB PER TUBE SCH (20:53)
[2018-02-05 04:18] VITALS: BP 123/86
[2018-02-05] MEDS: Meropenem 500 MG in Sodium Chloride 0.9% 100 ML IVPB SCH ×2 (05:48→18:02)
[2018-02-05] MEDS: Aspirin 325 MG TAB PO SCH (09:00)
[2018-02-05] MEDS: Sevelamer Carbonate 800 MG TAB PO SCH (09:14)
[2018-02-05] MEDS: FLUoxetine HCl 20 MG CAP PER TUBE SCH (09:14)
[2018-02-05] MEDS: Folic Acid 1 MG TAB PO SCH (09:14)
[2018-02-05] MEDS: ABACAVIR SULFATE PER TUBE SCH ×2 (09:14→21:25)
[2018-02-05] MEDS: Midodrine HCl 5 MG TAB PO SCH ×2 (09:15→21:30)
[2018-02-05] MEDS: Heparin 5,000 UNITS/ML VIAL SC SCH ×2 (09:15→21:30)
--- NOTE | 2018-02-05 10:38 | PRG ---
DATE OF SERVICE: 02/05/2018 SUBJECTIVE: Ms. Veronica seems to be in good spirits today. She wants to go back to the nursing [facility] e. OBJECTIVE: VITAL SIGNS: Temperature 98.1, pulse 86, respirations 18, O2 sat 94%, blood pressure cannot be measu red. HEENT: Unremarkable. NECK: No JVD. CHEST: Clear. CARDIAC: S1 and S2 regular. ABDOMEN: Soft. EXTREMITIES: Bilateral above the knee amputations. LABORATORY DATA: No new labs were obtained today. ASSESSMENT: 1. Chronic renal failure. 2. Human immunodeficiency virus, which is end-stage. 3. Myocardial infarction. PLAN: Doing well from a pulmonary standpoint, it would seem reasonable for hospital discharge if rachele calvillo else is considered in line by the multiple specialists involved in her care.
--- NOTE | 2018-02-05 13:09 | PRG ---
DATE OF SERVICE: 02/05/2018 SUBJECTIVE: Examined with no new complaint noted. PHYSICAL EXAMINATION: VITAL SIGNS: Afebrile with temperature 98.1, pulse 86, respiratory rate of 18, O2 sat of 94%-100% on room air. HEENT EXAMINATION: Unremarkable. CARDIOVASCULAR SYSTEM: First and second heart sounds were heard. RESPIRATORY SYSTEM: Clear to auscultation. DIGESTIVE SYSTEM: Revealed a benign abdomen. EXTREMITIES: No peripheral edema. SKIN EXAMINATION: No new gross rash. IMPRESSION: 1. End-stage renal disease, hemodialysis dependent, dialyzed yesterday. 2. Labile hemodynamics. PLAN: 1. The patient to be dialyzed tomorrow if she is here in accordance with the schedule Friday, , and Friday. 2. Further management to be dependent on the clinical course.
[2018-02-05] MEDS: Acetaminophen 325 MG TAB PO PRN (15:36)
[2018-02-05] MEDS ORDERED: traMADol HCl 50 MG TAB PER TUBE PRN (15:51)
--- NOTE | 2018-02-05 16:33 | PDOC.PN ---
- Subjective Encounter Start Date: 02/05/18 Encounter Start Time: 16:31 Subjective: nsg notes rev, dulce ovn, pt c/o pain in her ankle - Objective Resuscitation Status: Resuscitation Status DNR:Do Not Resuscitate Vital Signs & Weight: Vital Signs (12 hours) Temp Pulse Resp Pulse Ox 02/05/18 11:39 90 20 02/05/18 08:41 86 18 94 L 02/05/18 07:26 98.1 F 24 H 02/05/18 04:45 98 100 Weight Admit Weight 186 lb Weight 177 lb Most Recent Monitor Data Heart Rate from ECG 92 NIBP 37/14 NIBP BP-Mean 48 Respiration from ECG 16 SpO2 100 I&O: 02/04/18 02/05/18 02/06/18 06:59 06:59 06:59 Intake Total 1058 558 Balance 1058 558 Result Diagrams: 02/04/18 05:40 02/04/18 05:40 Additional Labs: Accuchecks 02/05/18 02/05/18 02/05/18 16:02 11:19 05:51 POC Glucose 127 H 164 H 156 H 02/04/18 21:15 POC Glucose 193 H Phys Exam - Physical Examination Constitutional: NAD HEENT: PERRLA, moist MMs, sclera anicteric Respiratory: no wheezing, no rales, no rhonchi Cardiovascular: RRR, no significant murmur, no rub Gastrointestinal: soft, positive bowel sounds b/l amputation sites c/d/i and well healed scars w/o skin breakdown Psychiatric: A&O x 3 Dx/Plan - Plan * .52F hx CAD, ESRD, HIV who presented after passing out * * hypotension * multifactorial * difficult to obtain SBP, titration of levophed related to mental status and clinical assessment * currently off levophed * t/c transition to floor * apprec pulm crit care c/s ESRD * see above * apprec nephology c/s * started HD - initial had some nonsustained VT, continue close monitoring, no further episodes * is M/W/F CAD * on heparin gtt during this hospitalization * s/p heparin gtt * continue to monitor for hemodynamic stability diet * continued aspiration risk, pt has refused PEG in past * as tolerated hx PVD s/p AKA b/l * phantom pain * d/w patient, conservative mgmt activity PT dvt ppx overall poor prognosis. has been seen by palliative care. Review of Systems - Medications/Allergies Allergies/Adverse Reactions: Allergies Allergy/AdvReac Type Severity Reaction Status Date / Time codeine Allergy Unknown Verified 08/27/17 06:41 Penicillins Allergy Unknown Verified 08/27/17 06:41 morphine Allergy Verified 08/27/17 06:41 Sulfa (Sulfonamide Allergy Verified 08/27/17 06:41 Antibiotics) Medications: Current Medications Abacavir Sulfate (Ziagen 20mg/Ml Oral Solution) 300 mg PER TUBE BID [facility] Last Admin: 02/05/18 09:14 Dose: 300 mg Acetaminophen (Tylenol) 650 mg PO Q4H PRN PRN Reason: Headache/Fever or Pain Last Admin: 02/05/18 15:36 Dose: 650 mg Albuterol/Ipratropium (Duoneb) 3 ml NEB QID-RT [facility] Last Admin: 02/05/18 14:47 Dose: 3 ml Aspirin (Aspirin) 325 mg PO DAILY [facility] Last Admin: 02/05/18 09:00 Dose: 325 mg Atorvastatin Calcium (Lipitor) 40 mg PER TUBE HS [facility] Last Admin: 02/04/18 20:53 Dose: 40 mg Dextrose/Water (Dextrose 50%) 25 gm SLOW IVP PRN PRN PRN Reason: Hypoglycemia Docusate Sodium (Colace) 100 mg PER TUBE DAILY PRN PRN Reason: Constipation Efavirenz (Sustiva) 600 mg PER TUBE 2100 [facility] Last Admin: 02/04/18 20:50 Dose: 600 mg Famotidine (Pepcid) 20 mg PO 2100 [facility] Last Admin: 02/04/18 20:49 Dose: 20 mg Fluoxetine HCl (Prozac) 20 mg PER TUBE DAILY [facility] Last Admin: 02/05/18 09:14 Dose: 20 mg Folic Acid (Folvite) 1 mg PO DAILY [facility] Last Admin: 02/05/18 09:14 Dose: 1 mg Glucagon (Glucagon) 1 mg IM PRN PRN PRN Reason: Hypoglycemia Heparin Sodium (Porcine) (Heparin) 5,000 units SC BID [facility] Last Admin: 02/05/18 09:15 Dose: Not Given Dextrose/Water (D5w) 1,000 mls @ 0 mls/hr IV .Q0M PRN; As Directed PRN Reason: Hypoglycemia Meropenem 500 mg/ Sodium (Chloride) 100 mls @ 200 mls/hr IVPB 0600,1800 [facility] Last Admin: 02/05/18 05:48 Dose: 100 mls Insulin Human Lispro (Humalog) 0 units SC .MILD SLIDING SCALE PRN PRN Reason: Mild Correctional Scale Last Admin: 02/04/18 16:06 Dose: 2 unit Insulin Human Lispro (Humalog) 0 units SC .BEDTIME SLIDING SC PRN PRN Reason: Bedtime Correctional Scale Last Admin: 02/03/18 20:46 Dose: 2 unit Lamivudine (Epivir) 150 mg PER TUBE DAILY [facility] Last Admin: 02/05/18 09:15 Dose: 150 mg Midodrine (Proamatine) 10 mg PO BID [facility] Last Admin: 02/05/18 09:15 Dose: 10 mg Nitroglycerin (Nitrostat) 0.4 mg SL Q5MIN PRN PRN Reason: Chest Pain Ondansetron HCl (Zofran) 4 mg IVP Q6H PRN PRN Reason: Nausea/Vomiting Last Admin: 02/04/18 19:50 Dose: 4 mg Sevelamer Carbonate (Renvela) 2,400 mg PO DAILY [facility] Last Admin: 02/05/18 09:14 Dose: 2,400 mg Sodium Chloride (Flush - Normal Saline) 10 ml IVF PRN PRN PRN Reason: Saline Flush Last Admin: 02/04/18 09:09 Dose: 10 ml Tramadol HCl (Ultram) 50 mg PER TUBE Q8H PRN PRN Reason: Pain
[2018-02-05] MEDS: Famotidine 20 MG TAB PO SCH (21:40)
[2018-02-05] MEDS: Atorvastatin Calcium 40 MG TAB PER TUBE SCH (21:40)
[2018-02-06 01:56] VITALS: TEMP 98
[2018-02-06] MEDS: Meropenem 500 MG in Sodium Chloride 0.9% 100 ML IVPB SCH (06:14)
--- NOTE | 2018-02-06 10:01 | PRG ---
DATE OF SERVICE: 02/06/2018 The patient was seen and examined today at dialysis, doing okay. As usual, with undetectable blood p ressure. PHYSICAL EXAMINATION: VITAL SIGNS: Afebrile with temperature 98, pulse 88, respiratory rate 20. HEENT: Unremarkable. CARDIOVASCULAR: First and second heart sounds were heard. RESPIRATORY: Clear to auscultation. DIGESTIVE: Revealed a benign abdomen, positive bowel sounds. EXTREMITIES: No peripheral edema. SKIN: No new gross rash. LYMPHATICS: No peripheral lymphadenopathy. IMPRESSION: 1. End-stage renal disease. 2. Labile hemodynamics. 3. Retroviral infection. PLAN: 1. The patient is currently undergoing hemodialysis as per her schedule with ultrafiltration as tole rated by hemodynamics. 2. Further management to be dependent on the clinical course. From the renal standpoint, the patient is good for discharge.
[2018-02-06] MEDS: ABACAVIR SULFATE PER TUBE SCH ×2 (10:52→12:25)
[2018-02-06] MEDS: Sevelamer Carbonate 800 MG TAB PO SCH (12:22)
[2018-02-06] MEDS: FLUoxetine HCl 20 MG CAP PER TUBE SCH (12:23)
[2018-02-06] MEDS: Folic Acid 1 MG TAB PO SCH (12:23)
[2018-02-06] MEDS: Midodrine HCl 5 MG TAB PO SCH (12:23)
[2018-02-06] MEDS: Aspirin 325 MG TAB PO SCH (12:24)
[2018-02-06 15:14] VITALS: BMI 29.0
--- NOTE | 2018-02-09 09:48 | DIS ---
DISCHARGE DIAGNOSES: 1. Hypotension, multifactorial. 2. End-stage renal disease. 3. Coronary artery disease, status post medical treatment. 4. Phantom limb pain. BRIEF SUMMARY OF HOSPITAL COURSE: This is a 52-year-old female with a known history of end-stage renal disease on hemodialysis who initially presented after having passed out at her [facility]. Please see the original history and physical for full details surrounding her admission. The patient has sustained an acute myocardial infarction with underlying inoperable coronary artery disease. The patient was started on a heparin drip and at the time of discharge, this has been discontinued and the patient has been placed on medical management for her coronary artery disease. Also, initially on presentation, the patient was found to be hypotensive and started on a Levophed drip as well as pressure support. Unfortunately, the patient is known to have chronic hypotension. She was seen by Cardiology, Critical Care, and her outpatient speech language pathology assistant. Levophed was subsequently titrated off not due to her systolic blood pressure readings, but more to her mentation. At the time of discharge, the patient has been off Levophed for more than 24 hours. Patient overall unfortunately has a poor general prognosis. Palliative care was also consulted during this hospitalization. The remainder of the patient's chronic medical issues were stable during this hospitalization. CONSULTANTS: 1. Nephrology. 2. Critical care. 3. Cardiology. 4. Palliative Care. HOME MEDICATION RECONCILIATION: Please see the EMR for full details. The patient's antihypertensives have all been held. She is to otherwise continue on her home regimen. The patient has also been started on midodrine 10 mg p.o. b.i.d. CONDITION AT DISCHARGE: The patient is tolerating her baseline diet and activity. The patient was seen and examined at the time of discharge. DISCHARGE INSTRUCTIONS: The patient is asked to follow up closely with her outpatient team including her primary care provider, speech language pathology assistant, and paper products machine operator. The patient has an unfortunate long-term poor prognosis. Highly recommend continued followup with palliative care as well. Thank you for asking me to care for the patient. Greater than 30 minutes spent coordinating discharge for the patient. JUDIED
--- NOTE | 2018-02-14 22:58 | EKG ---
Test Reason : Blood Pressure : / mmHG Vent. Rate : 110 BPM Atrial Rate : 110 BPM P-R Int : 168 ms QRS Dur : 098 ms QT Int : 352 ms P-R-T Axes : 086 138 141 degrees QTc Int : 476 ms Sinus tachycardia Possible Left atrial enlargement Low voltage QRS Anterolateral infarct , age undetermined Abnormal ECG Confirmed by DOROTA FAYE, LENO ([id number]), business editor NORMAN ROLAND ([id number]) on 02/14/2018 10:57:58 PM Referred By: Confirmed By:LENO RAYA MD
== END 2018-02-06 16:49 | DRG 280 ==
LOC: ERS 09:31 → CCU 14:25 → ONC 02-04 16:31
PROVIDERS: ADMIT Internal Medicine; ATTEND Internal Medicine
PROC: 5A1D70Z Performance of Urinary Filtration, Intermittent, Less than 6 Hours Per Day (ICD-10-PCS; 2018-02-02)
PROC: 5A1D70Z Performance of Urinary Filtration, Intermittent, Less than 6 Hours Per Day (ICD-10-PCS; principal; 2018-02-03)
PROC: 5A1D70Z Performance of Urinary Filtration, Intermittent, Less than 6 Hours Per Day (ICD-10-PCS; 2018-02-04)
PROC: 5A1D70Z Performance of Urinary Filtration, Intermittent, Less than 6 Hours Per Day (ICD-10-PCS; 2018-02-06)
DX: I21.4 Non-ST elevation (NSTEMI) myocardial infarction (principal); B20 Human immunodeficiency virus [HIV] disease; J96.01 Acute respiratory failure with hypoxia; I47.2 Ventricular tachycardia; I13.2 Hypertensive heart and chronic kidney disease with heart failure and with stage 5 chronic kidney disease, or end stage renal disease; E44.0 Moderate protein-calorie malnutrition; I95.9 Hypotension, unspecified; S88.911A Complete traumatic amputation of right lower leg, level unspecified, initial encounter; E87.5 Hyperkalemia; B33.3 Retrovirus infections, not elsewhere classified; N18.6 End stage renal disease; S88.912A Complete traumatic amputation of left lower leg, level unspecified, initial encounter; I50.22 Chronic systolic (congestive) heart failure; E87.70 Fluid overload, unspecified; F03.90 Unspecified dementia, unspecified severity, without behavioral disturbance, psychotic disturbance, mood disturbance, and anxiety; I73.9 Peripheral vascular disease, unspecified; Z66 Do not resuscitate; R13.12 Dysphagia, oropharyngeal phase; Z89.612 Acquired absence of left leg above knee; Z89.611 Acquired absence of right leg above knee; I25.10 Atherosclerotic heart disease of native coronary artery without angina pectoris; Z51.5 Encounter for palliative care; Z86.73 Personal history of transient ischemic attack (TIA), and cerebral infarction without residual deficits; J44.9 Chronic obstructive pulmonary disease, unspecified; Z87.891 Personal history of nicotine dependence; I25.2 Old myocardial infarction; I25.5 Ischemic cardiomyopathy; F25.9 Schizoaffective disorder, unspecified; E11.22 Type 2 diabetes mellitus with diabetic chronic kidney disease; Z99.2 Dependence on renal dialysis; Z79.4 Long term (current) use of insulin; Z68.29 Body mass index [BMI] 29.0-29.9, adult
CPT/HCPCS: 36415; 36416; 71045; 80048; 80053; 80061; 80202; 82553; 83690; 84484; 85025; 85379; 85610; 85730; 87040; 87045; 87046; 87324; 87340; 87449; 87899; 90935; 93005; 93306; 94640; 96361; 96365; 96375; A4216; G0257; G8978-GP-CN; G8979-GP-CN; G8980-GP-CN; G8996-GN-CN; G8997-GN-CN; J1644; J2060; J2185; J2405; J3010; J3370; J7050; J7620

== ENCOUNTER 2018-02-11 09:11 | Emergency (ER) | payer MEDICARE, MEDICAID ==
[2018-02-11 09:48] LABS: #Eosinphils 0.1 thou/uL (0.0-0.7); #Monocytes 0.7 thou/uL (0.11-0.59); #Neutrophils 9.8 thou/uL (1.40-6.50); %Basophils 0.2 % (0.0-1.0); %Eosinophils 0.5 % (0.0-10.0); %Lymphocytes 8.5 % (21.0-51.0); %Neutrophils 84.8 % (42.0-75.0); Hemoglobin 12.7 g/dL (12.0-16.0); Mean Corpuscular HGB CONC 32.5 g/dL (32.0-36.0); Mean Corpuscular Hemoglobin 33.7 pg (27.0-31.0); Platelet Count 290 thou/uL (130-400); Red Blood Cell (RBC) Count 3.77 mill/uL (4.20-5.40); White Blood Cell (WBC) Count 11.6 thou/uL (4.8-10.8)
[2018-02-11 10:10] LABS: ALT (SGPT) 13 U/L (8-55); AST (SGOT) 16 U/L (5-34); Albumin 3.4 g/dL (3.5-5.0); Alkaline Phosphatase 213 U/L (40-150); Anion Gap 21 mmol/L (10-20); BUN (Urea Nitrogen) 37 mg/dL (9.8-20.1); Bilirubin, Total 0.4 mg/dL (0.2-1.2); CK (CPK) 49 U/L (29-168); Calc. Creatinine Clearance 0 mL/min (70-130); Calcium 8.7 mg/dL (7.8-10.44); Carbon Dioxide 23 mmol/L (22-29); Chloride 99 mmol/L (98-107); Estimated GFR-MDRD 7; Globulin 4.1 g/dL (2.4-3.5); Glucose 219 mg/dL (70-105); Potassium 4.2 mmol/L (3.5-5.1); Protein, Total 7.5 g/dL (6.0-8.3); Sodium 139 mmol/L (136-145)
[2018-02-11 10:21] LABS: CKMB 1.9 ng/mL (0-6.6)
[2018-02-11 10:26] LABS: Troponin I 0.999 ng/mL (< 0.028)
--- NOTE | 2018-02-11 12:18 | RAD ---
PORTABLE CHEST ONE VIEW: 02/11/2018 9:57 a.m. HISTORY: Shortness of breath. Chest pain. Chronic renal failure. Patient on dialysis. COMPARISON: 02/02/2018 FINDINGS: The heart is enlarged. There is mild prominence of the pulmonary vascularity without lobar consolida tion, pneumothoraces, jose l pulmonary edema, or large effusions. POS: OFF
[2018-02-11 13:29] LABS: Troponin I 1.041 ng/mL (< 0.028)
--- NOTE | 2018-02-14 19:57 | EKG ---
Test Reason : CP Blood Pressure : / mmHG Vent. Rate : 100 BPM Atrial Rate : 100 BPM P-R Int : 164 ms QRS Dur : 116 ms QT Int : 412 ms P-R-T Axes : 071 138 249 degrees QTc Int : 531 ms Normal sinus rhythm Right axis deviation Possible Right ventricular hypertrophy Cannot rule out Anteroseptal infarct , age undetermined No STEMI Abnormal ECG Confirmed by ELLIOTT MEDRANO ([id number]), deputy editor in chief NORMAN ROLAND ([id number]) on 02/14/2018 7:57:27 PM Referred By: Confirmed By:ELLIOTT MEDRANO
== END 2018-02-11 14:35 | disposition home or self-care (01) ==
LOC: ERS 09:11
DX: R07.9 Chest pain, unspecified (principal); I13.2 Hypertensive heart and chronic kidney disease with heart failure and with stage 5 chronic kidney disease, or end stage renal disease; N18.6 End stage renal disease; E11.22 Type 2 diabetes mellitus with diabetic chronic kidney disease; I25.10 Atherosclerotic heart disease of native coronary artery without angina pectoris; J44.9 Chronic obstructive pulmonary disease, unspecified; K21.9 Gastro-esophageal reflux disease without esophagitis; B20 Human immunodeficiency virus [HIV] disease; E78.5 Hyperlipidemia, unspecified; F20.9 Schizophrenia, unspecified; F32.9 Major depressive disorder, single episode, unspecified; F03.90 Unspecified dementia, unspecified severity, without behavioral disturbance, psychotic disturbance, mood disturbance, and anxiety; Z86.73 Personal history of transient ischemic attack (TIA), and cerebral infarction without residual deficits; Z87.891 Personal history of nicotine dependence
CPT/HCPCS: 36415; 71045; 80053; 82553; 83735; 84484; 85025; 93005